=== PATIENT | male | born 1955 | race Caucasian/White ===

== ENCOUNTER 2020-08-28 08:09 | Outpatient (REF) | payer MEDICARE, SELFPAY ==
[2020-08-28 10:49] LABS: Ferritin 104 ng/mL (20-250)
== END 2020-08-28 08:10 | disposition home or self-care (01) ==
LOC: HO.BBR 08:09
PROVIDERS: PCP Internal Medicine; Visit Provider Internal Medicine Gastroenterology
DX: E83.110 Hereditary hemochromatosis (principal)
CPT/HCPCS: 36415; 82728

== ENCOUNTER 2020-08-28 09:18 | Outpatient (REF) | payer SELFPAY | END 2020-08-28 09:19 | disposition home or self-care (01) | LOC: HO.LNC 09:18 | PROVIDERS: Visit Provider Pathology Anatomic Pathology & Clinical Pathology | DX: Z13.89 Encounter for screening for other disorder (principal) | CPT/HCPCS: 36415; 82465 ==

== ENCOUNTER 2020-11-15 08:00 | Outpatient (REF) | payer MEDICARE, SELFPAY | END 2020-11-15 08:01 | disposition home or self-care (01) | LOC: HO.BBR 08:00 | PROVIDERS: PCP Internal Medicine; Visit Provider Internal Medicine Gastroenterology | DX: Z13.89 Encounter for screening for other disorder (principal) ==

== ENCOUNTER 2020-11-29 11:51 | Outpatient (REF) | payer MEDICARE, SELFPAY ==
[2020-11-29 14:12] LABS: Ferritin 88 ng/mL (20-250)
== END 2020-11-29 11:52 | disposition home or self-care (01) ==
LOC: HO.BBR 11:51
PROVIDERS: Visit Provider Internal Medicine Gastroenterology
DX: E83.110 Hereditary hemochromatosis (principal)
CPT/HCPCS: 36415; 82728

== ENCOUNTER 2021-10-22 11:03 | Outpatient (REF) | payer MEDICARE, BC, SELFPAY ==
[2021-10-22 13:00] LABS: Ferritin 133 ng/mL (20-250)
== END 2021-10-22 11:04 | disposition home or self-care (01) ==
LOC: HO.BBR 11:03
PROVIDERS: Visit Provider Internal Medicine Gastroenterology
DX: E83.110 Hereditary hemochromatosis (principal)
CPT/HCPCS: 36415; 82728

== ENCOUNTER 2022-01-28 11:09 | Outpatient (REF) | payer MEDICARE, BC, SELFPAY ==
[2022-01-28 13:23] LABS: Ferritin 126 ng/mL (20-250)
== END 2022-01-28 11:10 | disposition home or self-care (01) ==
LOC: HO.BBR 11:09
PROVIDERS: Visit Provider Internal Medicine Gastroenterology
DX: E83.110 Hereditary hemochromatosis (principal)
CPT/HCPCS: 36415; 82728

== ENCOUNTER 2022-05-08 11:00 | Outpatient (REF) | payer MEDICARE, BC, SELFPAY ==
[2022-05-08 13:03] LABS: Ferritin 91 ng/mL (20-250)
== END 2022-05-08 11:01 | disposition home or self-care (01) ==
LOC: HO.BBR 11:00
PROVIDERS: Visit Provider Internal Medicine Gastroenterology
DX: E83.110 Hereditary hemochromatosis (principal)
CPT/HCPCS: 36415; 82728

== ENCOUNTER 2022-08-12 11:11 | Outpatient (REF) | payer MEDICARE, BC, SELFPAY ==
[2022-08-12 14:27] LABS: Ferritin 65 ng/mL (20-250)
== END 2022-08-12 11:12 | disposition home or self-care (01) ==
LOC: HO.BBR 11:11
PROVIDERS: Visit Provider Internal Medicine Gastroenterology
DX: E83.110 Hereditary hemochromatosis (principal)
CPT/HCPCS: 36415; 82728

== ENCOUNTER 2022-11-04 09:10 | Outpatient (REF) | payer MEDICARE, BC, SELFPAY ==
[2022-11-04 11:12] LABS: Ferritin 63 ng/mL (20-250)
== END 2022-11-04 09:11 | disposition home or self-care (01) ==
LOC: HO.BBR 09:10
PROVIDERS: Visit Provider Internal Medicine Gastroenterology
DX: E83.110 Hereditary hemochromatosis (principal)
CPT/HCPCS: 36415; 82728

== ENCOUNTER 2023-05-25 10:19 | Outpatient (REF) | payer MEDICARE, SELFPAY | END 2023-05-25 10:20 | disposition home or self-care (01) | LOC: HO.BBR 10:19 | PROVIDERS: PCP Internal Medicine; Visit Provider Internal Medicine Gastroenterology | DX: Z13.89 Encounter for screening for other disorder (principal) ==

== ENCOUNTER 2023-08-19 10:04 | Outpatient (REF) | payer MEDICARE, SELFPAY | END 2023-08-19 10:05 | disposition home or self-care (01) | LOC: HO.BBR 10:04 | PROVIDERS: PCP Internal Medicine; Visit Provider Internal Medicine Gastroenterology | DX: Z13.89 Encounter for screening for other disorder (principal) ==

== ENCOUNTER 2023-11-23 08:46 | Outpatient (REF) | payer MEDICARE, SELFPAY ==
[2023-11-23 11:11] LABS: Ferritin 84 ng/mL (20-250)
== END 2023-11-23 08:47 | disposition home or self-care (01) ==
LOC: HO.BBR 08:46
PROVIDERS: PCP Internal Medicine; Visit Provider Internal Medicine Gastroenterology
DX: E83.110 Hereditary hemochromatosis (principal)
CPT/HCPCS: 36415; 82728

== ENCOUNTER 2024-03-29 09:10 | Outpatient (REF) | payer MEDICARE, SELFPAY | END 2024-03-29 09:11 | disposition home or self-care (01) | LOC: HO.BBR 09:10 | PROVIDERS: PCP Internal Medicine; Visit Provider Internal Medicine Gastroenterology | DX: Z13.89 Encounter for screening for other disorder (principal) ==

== ENCOUNTER 2024-07-06 08:59 | Outpatient (REF) | payer MEDICARE, SELFPAY ==
[2024-07-06 10:34] LABS: Ferritin 178 ng/mL (20-250)
== END 2024-07-06 09:00 | disposition home or self-care (01) ==
LOC: HO.BBR 08:59
PROVIDERS: PCP Internal Medicine; Visit Provider Internal Medicine Gastroenterology
DX: E83.110 Hereditary hemochromatosis (principal)
CPT/HCPCS: 36415; 82728

== ENCOUNTER 2024-12-22 10:07 | Outpatient (REF) | payer MEDICARE, SELFPAY ==
[2024-12-22 12:48] LABS: Ferritin 91 ng/mL (20-250)
== END 2024-12-22 10:08 | disposition home or self-care (01) ==
LOC: HO.BBR 10:07
PROVIDERS: PCP Internal Medicine; Visit Provider Internal Medicine Gastroenterology
DX: E83.110 Hereditary hemochromatosis (principal)
CPT/HCPCS: 36415; 82728

== ENCOUNTER 2025-03-29 10:59 | Outpatient (REF) | payer MEDICARE, SELFPAY ==
--- OUTSIDE RECORDS SUMMARY | 2025-03-29 11:55 | XMS_ITS | Encounter Summary ---
Author Organization [facility] Address [address] [place] [address] [place] [address] Phone Care Team Providers Care Erp Business Analyst Name Role Phone Jose Angel Cobb MD Unavailable Travis Fowler DO Unavailable [phone] Ana Torres MD Unavailable Beni Mcneil MD Unavailable Freda Angeal MD Unavailable Martha Reyes MD Unavailable Jose Angel Cobb MD Primary Care Provider Jose Angel Cobb MD Unavailable [phone] Encounter Details Date Type Department Care Team (Latest Contact Info) Description 11/28/2020 Transcribe Orders Virtual Department 30 [place] [address] Jesus Manuel Newman MD [address] [place] [address] Abnormal LFTs (Primary Dx) Social History Tobacco Use Types Packs/Day Years Used Date Smoking Tobacco: Never Smokeless Tobacco: Never Sex and Gender Information Value Date Recorded Sex Assigned at Male 04/15/2022 1:02 PM EDT Legal Sex Male 9:55 PM EDT Gender Identity Male 04/15/2022 1:02 PM EDT Sexual Orientation Not on file 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, 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 on file Not on sarah e documented as of this encounter Plan of Treatment Upcoming Encounters Date Type Department Care Team (Late st Contact Info) Description 06/22/2025 3:00 PM EST Office Visit [facility] Neuromuscular [address] [place] [address] Felicity Palomo PA-C 60 [place] [address] [email or web address] documented as of this encounter Results * US ABDOMEN LIMITED RIGHT UPPER QUADRANT (12/18/2020 8:01 AM EDT) Anatomical Region Laterality Modality Abdomen Ultrasound 12/18/2020 8:08 AM EDT Impressions 12/18/2020 8:11 AM EDT Sonographic findings suggestive of fatty infiltration of the liver parenchyma. Narrative 12/18/2020 8:11 AM EDT EXAM: US ABDOMEN LIMITED RIGHT UPPER QUADRANT HISTORY: Abnormal LFTs N/A no indication applies (use free text below) COMPARISON: Ultrasound on August 19, 2019 TECHNIQUE: Limited ultrasound examination of right upper quadrant of abdomen was performed and multiple static images obtained. FINDINGS: PANCREAS: LIVER: Diffuse increased liver echogenicity. Heterogeneous parenchyma, but no discrete focal lesion demonstrated in the provided images. Main portal vein is patent and with normal hepatopetal flow GALLBLADDER/BILIARY: The gallbladder has a normal appearance, without evidence for gallstones, gallbladder wall thickening or pericholecystic fluid. Common bile duct demonstrates a normal diameter and measures 0.3 cm. RIGHT KIDNEY: No hydronephrosis. Upper AORTA and IVC: Visualized upper portions of aorta and inferior vena cava are unremarkable. Other: No free fluid demonstrated. Procedure Note Kathy Sagastume MD - 12/18/2020 EXAM: US ABDOMEN LIMITED RIGHT UPPER QUADRANT HISTORY: Abnormal LFTs N/A no indication applies (use free text below) COMPARISON: Ultrasound on August 19, 2019 TECHNIQUE: Limited ultrasound examination of right upper quadrant ofabdomen was performed and multiple static images obtained. FINDINGS: PANCREAS: LIVER: Diffuse increased liver echogenicity. Heterogeneous parenchyma, butno discrete focal lesion demonstrated in the provided images. Main portalvein is patent and with normal hepatopetal flow GALLBLADDER/BILIARY: The gallbladder has a normal appearance, withoutevidence for gallstones, gallbladder wall thickening or pericholecysticfluid. Common bile duct demonstrates a normal diameter and measures 0.3cm. RIGHT KIDNEY: No hydronephrosis. Upper AORTA and IVC: Visualized upper portions of aorta and inferior venacava are unremarkable. Other: No free fluid demonstrated. IMPRESSION: Sonographic findings suggestive of fatty infiltration of the liverparenchyma. us Jesus Manuel Newman MD IMG US ABDOMEN Final Result documented in this encounter Visit Diagnoses Diagnosis Abnormal LFTs- Primary Abnormal LFTs documented in this encounter Additional Health Concerns Assessment Noted Time PHQ-2 Depression Total Score: 0 07/06/20 19 4:34 PM EST documented as of this encounter Care Teams Erp Business Analyst Relationship Specialty Start Date End Date Jose Angel Cobb MD [address] [place] [address] PCP - General Internal Medicine 06/19/17 Jose Angel Cobb MD [address] [place] [address] Historical LMR Provider 05/20/17 Travis Fowler DO [address] [place] [address] Orthopedics & Sports Medicine, [place] [address] Historical LMR Provider 05/20/17 08/10/21 Ana Torres MD [address] [place] [address] Historical LMR Provider 05/20/17 Beni Mcneil MD [address] [facility] [address] [place] [address] Historical LMR Provider 05/20/17 2 Freda Angela MD [address] [place] [address] Orthopedics & Sports Medicine, [place] [address] Historical LMR Provider 05/20/17 Martha Reyes MD [address] [place] [address] Historical LMR Provider 05/20/17 Jose Angel Cobb MD [address] [place] [address], [address] [place] [address] [email or web address] Insurance Assigned Provider 11/07/23 documented as of this encounter Additional Source Comments The information contained in this document represents components of the legal health record. It is not the complete legal health record.[facility]
--- OUTSIDE RECORDS SUMMARY | 2025-03-29 11:55 | XMS_ITS | Encounter Summary ---
Author Organization [facility] Address [address] [place] [address] Phone Care Team Providers Care Plastic Bubble Packer Name Role Phone Jose Angel Cobb MD Unavailable Jose Angel Cobb MD Primary Care Provider Jose Angel Cobb MD Unavailable [phone] Encounter Details Date Type Department Care Team (Latest Contact Info) Description 11/26/2022 Transcribe Orders Virtual Department 30 [place] [address] Jesus Manuel Newman MD [address] [place] [address] [email or web address] Hepatic fibrosis (Primary Dx); Hereditary hemochromatosis Social History Tobacco Use Types Packs/Day Years Used Date Smoking Tobacco: Never Smokeless Tobacco: Never Alcohol Use Standard Drinks/Week Comments Yes 0 (1 standard drink = 0.6 oz pur e alcohol) once a week Child or Family Care Answer Date Record ed Do you have problems with on e of the following making it difficult for you to work, study, or receive health care? No 12/25/2021 Education Answer Date Recorded Are you interested in help w ith more adult education (for example, completing high school, GED, job training, learning the Maur[place] language, technical skills, or developing parenting skills)? No 12/25/2021 Food Answer Date Recorded Within the past 6 months we worried whether our food would run out before we got money to buy more. Never True 12/25/2021 Within the past 6 months the food we bought just didn't last and we didn't have enough money to get more. Never True Residential Stability Answer Date Recor ded What is your housing situation today? I have smiley maddox 12/25/2021 How many times have you move d in the past 12 months? Zero (I did not move) 12/25/2021 Paying for Meds Answer Date Recorded Do you have trouble paying for medicines? No 12/25/2021 Paying Utility Bills Answer Date Record ed Do you have trouble paying your heating or elect ricity bill? No 12/25/2021 Transportation Answer Date Recorded Has the lack of transportati on kept you from medical appointments or from getting medications? No 12/25/2021 Unemployment Answer Date Recorded Are you currently unemployed or working on a part-time or temporary basis, and looking for work? 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, 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 on file Not on sarah e documented as of this encounter Plan of Treatment Upcoming Encounters Date Type Department Care Team (Late st Contact Info) Description 06/22/2025 3:00 PM EST Office Visit [facility] Neuromuscular [address] [place] [address] Felicity Palomo PA-C [address] [place] [address] [email or web address] documented as of this encounter Results * US LIVER WITH ELASTOGRAPHY (12/19/2022 7:55 AM EDT) Anatomical Region Laterality Modality Abdomen Ultrasound 12/19/2022 8:34 AM EDT Impressions 12/19/2022 2:46 PM EDT 1. Mean Liver Stiffness Value 6.6 kPa 2. Increased echogenicity of the hepatic parenchyma which may be seen in the setting of hepatic steatosis. Narrative 12/19/2022 2:46 PM EDT US LIVER WITH ELASTOGRAPHY TECHNIQUE: US Limited Abdomen with Liver Elastography. COMPARISON: Sonography 05/16/2021 FINDINGS: MIDLINE VASCULATURE: The visualized IVC is patent. Portal vein is patent. The aorta is patent where visualized. LIVER: There is increased echogenicity of the hepatic parenchyma which may be seen in the setting of hepatic steatosis. No focal hepatic lesions demonstrated sonographically. BILIARY: Gallbladder: The gallbladder is nondistended with normal gallbladder wall thickness. No cholelithiasis. Common bile duct measures 4 mm. PANCREAS: Incompletely visualized due to overlying bowel gas. Visualized portions are within normal limits PERITONEUM: No free fluid. RIGHT KIDNEY: Normal in size. No hydronephrosis or calculus. Elastography: Sonographic assessment (kPa): 6.6. (IQR/Med: 9.5 %) Risk of fibrosis: This is less than 9 kPa, which in the absence of other known clinical signs, rules out compensated advanced chronic liver disease. SOCIETY OF RADIOLOGISTS IN ULTRASOUND CONSENSUS: In the setting of elevated liver function tests, nonfasting, vascular congestion, etc., the stage of liver fibrosis may be overestimated. In some patients with NAFLD, the cut-off values for compensated advanced chronic liver disease may be lower. In causes other than viral hepatitis and NAFLD, the cut-off values are not well established. Melody RG, Jasiel SR, Ramin D, Roshan-Astrid G, Elina G. Update to the Society of Radiologists in Ultrasound Liver Elastography Consensus Statement. Radiology. 2020 Mar;296(2):263-274. doi: 10.1148/radiol.[id number]. Epub 2019Jan 09. PMID: [id number]. Procedure Note Elaine Skinner MD - 12/19/2022 US LIVER WITH ELASTOGRAPHY TECHNIQUE: US Limited Abdomen with Liver Elastography. COMPARISON: Sonography 05/16/2021 FINDINGS: MIDLINE VASCULATURE: The visualized IVC is patent. Portal vein is patent.The aorta is patent where visualized. LIVER: There is increased echogenicity of the hepatic parenchyma which maybe seen in the setting of hepatic steatosis. No focal hepatic lesionsdemonstrated sonographically. BILIARY: Gallbladder: The gallbladder is nondistended with normalgallbladder wall thickness. No cholelithiasis. Common bile duct measures 4 mm. PANCREAS: Incompletely visualized due to overlying bowel gas. Visualizedportions are within normal limits PERITONEUM: No free fluid. RIGHT KIDNEY: Normal in size. No hydronephrosis or calculus. Elastography: Sonographic assessment (kPa): 6.6. (IQR/Med: 9.5 %) Risk of fibrosis: This is less than 9 kPa, which in theabsence of other known clinical signs, rules out compensated advancedchronic liver disease. SOCIETY OF RADIOLOGISTS IN ULTRASOUND CONSENSUS: In the setting of elevated liver function tests, nonfasting, vascularcongestion, etc., the stage of liver fibrosis may be overestimated. Insome patients with NAFLD, the cut-off values for compensated advancedchronic liver disease may be lower. In causes other than viral hepatitisand NAFLD, the cut-off values are not well established. Melody RG, Jasiel SR, Ramin D, Roshan-Astrid G, Elina G. Update to theSociety of Radiologists in Ultrasound Liver Elastography ConsensusStatement. Radiology. 2020 Mar;296(2):263-274. doi:10.1148/radiol.[id number]. Epub 2019Jan 09. PMID: [id number]. IMPRESSION: 1. Mean Liver Stiffness Value 6.6 kPa 2. Increased echogenicity of the hepatic parenchyma which may be seen inthe setting of hepatic steatosis. us Jesus Manuel Newman MD IMG US ABDOMEN Final Result documented in this encounter Visit Diagnoses Diagnosis Hepatic fibrosis- Primary Cirrhosis of liver without mention of alcohol Hereditary hemochromatosis Hepatic fibrosis Cirrhosis of liver without mention of alcohol Hereditary hemochromatosis documented in this encounter Additional Health Concerns Assessment Noted Time PHQ-2 Depression Total Score: 0 12/26/19 22 2:52 PM EDT documented as of this encounter Care Teams Plastic Bubble Packer Relationship Specialty Start Date End Date Jose Angel Cobb MD [address] [place] [address], [address] [place] [address] PCP - General Internal Medicine 06/19/17 Jose Angel Cobb MD [address] [place] [address], [address] [place] [address] [email or web address] Historical LMR Provider 05/20/17 Jose Angel Cobb MD [address] [place] [address], [address] [place] [address] [email or web address] Insurance Assigned Provider 11/07/23 documented as of this encounter Additional Source Comments The information contained in this document represents components of the legal health record. It is not the complete legal health record.[facility]
--- OUTSIDE RECORDS SUMMARY | 2025-03-29 11:55 | XMS_ITS | Encounter Summary ---
Author Organization [facility] Address [address] [place] [address] [place] [address] Phone Care Team Providers Care Oriental Medicine Practitioner Name Role Phone Jose Angel Cobb MD Unavailable [phone] Travis Fowler DO Unavailable Ana Torres MD Unavailable Beni Mcneil MD Unavailable Freda Angela MD Unavailable Martha Reyes MD Unavailable Jose Angel Cobb MD Primary Care Provider Jose Angel Cobb MD Unavailable Encounter Details Date Type Department Care Team (Latest Contact Info) Description 08/19/2018 Ancillary Orders Virtual Department 30 [place] [address] Jesus Manuel Newman MD [address] [place] [address] Hereditary hemochromatosis Social History Tobacco Use Types Packs/Day Years Used Date Smoking Tobacco: Never Smokeless Tobacco: Never Sex and Gender Information Value Date Recorded Sex Assigned at Male 04/15/2022 1:02 PM EDT Legal Sex Male 9:55 PM EDT Gender Identity Male 04/15/2022 1:02 PM EDT Sexual Orientation Not on file documented as of this encounter Plan of Treatment Upcoming Encounters Date Type Department Care Team (Late st Contact Info) Description 06/22/2025 3:00 PM EST Office Visit [facility] Neuromuscular [address] [place] [address] Felicity Palomo PA-C 60 [place] [address] [email or web address] documented as of this encounter Results * US ABDOMEN LIMITED LIVER (09/14/2018 8:16 AM EST) Anatomical Region Laterality Modality Abdomen Ultrasound 09/14/2018 10:4 9 AM EST Impressions 09/14/2018 10:54 AM EST Echogenic, heterogeneous and coarse liver. The appearance is very similar to 06/30/2016. No evidence of hepatic masses. POS - [id number] Narrative 09/14/2018 10:54 AM EST HISTORY: Abnormal liver function tests, hereditary hemochromatosis. EXAM: Limited abdominal ultrasound. COMPARISON: Abdominal ultrasound 06/30/2016. FINDINGS: A directed ultrasound of the liver performed. The liver is mildly hyperechoic, heterogeneous and echotexture is coarse. The appearance is very similar to 06/30/2016. No evidence of hepatic masses. Liver appears grossly normal in size. No other definite abnormalities. Procedure Note Catalino Hdez MD - 09/14/2018 HISTORY: Abnormal liver function tests, hereditary hemochromatosis. EXAM: Limited abdominal ultrasound. COMPARISON: Abdominal ultrasound 06/30/2016. FINDINGS: A directed ultrasound of the liver performed. The liver is mildly hyperechoic, heterogeneous and echotexture is coarse.The appearance is very similar to 06/30/2016. No evidence of hepaticmasses. Liver appears grossly normal in size. No other definiteabnormalities. IMPRESSION: Echogenic, heterogeneous and coarse liver. The appearance is very similarto 06/30/2016. No evidence of hepatic masses. POS - [id number] us Jesus Manuel Newman MD IMG US ABDOMEN Final Result documented in this encounter Visit Diagnoses Diagnosis Hereditary hemochromatosis Hereditary hemochromatosis documented in this encounter Care Teams Oriental Medicine Practitioner Relationship Specialty Start Date End Date Jose Angel Cobb MD [address] [place] [address] PCP - General Internal Medicine 06/19/17 Jose Angel Cobb MD [address] [place] [address] Historical LMR Provider 05/20/17 Travis Fowler DO [address] [place] [address] Orthopedics & Sports [facility], [place] [address] Historical LMR Provider 05/20/17 08/10/21 Ana Torres MD [address] [address] Historical LMR Provider 05/20/17 Beni Mcneil MD [address] [place] [address] [place] [address] Historical LMR Provider 05/20/17 2 Freda Angela MD [address] [place] [address] Orthopedics & Sports [facility], [place], [place] [id number] Historical LMR Provider 05/20/17 Martha Reyes MD [address] [place] [address] Historical LMR Provider 05/20/17 Jose Angel Cobb MD [address] [place] [address], [address] [place] [address] [email or web address] Insurance Assigned Provider 11/07/23 documented as of this encounter Additional Source Comments The information contained in this document represents components of the legal health record. It is not the complete legal health record.[facility]
--- OUTSIDE RECORDS SUMMARY | 2025-03-29 11:55 | XMS_ITS | Encounter Summary ---
Author Organization [facility] Address [address] [facility] [address] [place] [address] Phone Care Team Providers Care Paste Mixing Supervisor Name Role Phone Jose Angel Cobb MD Unavailable Jose Angel Cobb MD Primary Care Provider Jose Angel Cobb MD Unavailable Reason for Visit * Reason Onset Date Comments Referral 06/14/2024 Encounter Details Date Type Department Care Team (Late st Contact Info) Description 06/14/2024 Telephone [facility] [address] [place] [address] [place] [address] Jose Angel Cobb MD [address] [place] [address], [address] [place] [address] [email or web address] Referral Social History Tobacco Use Types Packs/Day Years [...] Answer Date Recorded Are you interested in more education? Not on sarah e 12/29/2023 Are you concerned about learning? Not on file 12/29/2023 No 12/29/2023 No 12/29/2023 Food Answer Date Recorded Within the past [...] your housing situation today? I have smiley sing 12/25/2021 How many times have you move [...] basis, and looking for work? No 12/25/2021 Digital Access Answer Date Recorded No 12/25/2022 No 12/25/2022 Reliable internet access at home? Not on file 12/25/2022 Device with a working camera? 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 Claims doctor had written one last appointment (about 6 months ago), but patient can not find it. Last dermatology referral is from 2022, and is no good. Patient has no preference of correctional case manager to go too, just wants referral. Please [phone] documented in this encounter Plan of Treatment Upcoming Encounters Date Type Department Care Team (Late st Contact Info) Description 06/22/2025 3:00 PM EST Office Visit [facility] Neuromuscular 60 [place] [address] Felicity Palomo PA-C 60 [place] [address] [email or web address] documented as of this encounter Visit Diagnoses Not on filedocumented in this encounter Additional Health Concerns Assessment Noted Time PHQ-9 Depression Total Score: 4 07/13/20 23 8:19 AM EST PHQ-2 Depression Total Score: 0 07/13/20 23 8:19 AM EST documented as of this encounter Care Teams Paste Mixing Supervisor Relationship Specialty Start Date End Date Jose Angel Cobb MD [address] [place] [address] PCP - General Internal Medicine 06/19/17 Jose Angel Cobb MD [address] [place] [address] Historical LMR Provider 05/20/17 Jose Angel Cobb MD [address] [place] [address] Insurance Assigned Provider 11/07/23 documented as of this encounter Additional Source Comments The information contained in this document represents components of the legal health record. It is not the complete legal health record.[facility]
--- OUTSIDE RECORDS SUMMARY | 2025-03-29 11:55 | XMS_ITS | Encounter Summary ---
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, 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 on file Not on sarah e documented as of this encounter Plan of Treatment Upcoming Encounters Date Type Department Care Team (Late st Contact Info) Description 06/22/2025 3:00 PM EST Office Visit [facility] Neuromuscular 60 [place] [address] Felicity Palomo PABella [address] [place] [address] [email or web address] documented as of this encounter Visit Diagnoses Not on filedocumented in this encounter Additional Health Concerns Assessment Noted Time PHQ-9 Depression Total Score: 4 07/13/20 23 8:19 AM EST PHQ-2 Depression Total Score: 0 07/13/20 23 8:19 AM EST documented as of this encounter Care Teams Instrument Mechanics Supervisor Relationship Specialty Start Date End Date Jose Angel Cobb MD [address] [place] [address], [address] [place] [address] [email or web address] PCP - General Internal Medicine 06/19/17 Jose Angel Cobb MD [address] [place] [address], [address] [place] [address] Historical LMR Provider 05/20/17 Jose Angel Cobb MD [address] [place] [address], [address] [place] [address] [email or web address] Insurance Assigned Provider 11/07/23 documented as of this encounter Additional Source Comments The information contained in this document represents components of the legal health record. It is not the complete legal health record.[facility]
--- OUTSIDE RECORDS SUMMARY | 2025-03-29 11:55 | XMS_ITS | Encounter Summary ---
Author Organization [facility] Address [address] [place] [address] [place] [address] Phone Care Team Providers Care Mig Tig Welder Name Role Phone Jose Angel Cobb MD Unavailable [phone] Travis Fowler DO Unavailable Ana Torres MD Unavailable Beni Mcneil MD Unavailable [phone] Freda Angela MD Unavailable Martha Reyes MD Unavailable Jose Angel Cobb MD Primary Care Provider Jose Angel Cobb MD Unavailable [phone] Encounter Details Date Type Department Care Team (Latest Contact Info) Description 08/17/2018 Transcribe Orders [facility] Laboratory [address] 2[address] [place] [address] Jesus Manuel Newman MD 10 [facility] 2 [place] [address] Hemochromatosis, unspecified hemochromatosis type (Primary Dx) Social History Tobacco Use Types [...] Description 06/22/2025 3:00 PM EST Office Visit [facility] Neuromuscular [address] [place] [address] Felicity Palomo PA-C [address] [place] [address] [email or web address] documented as of this encounter Results * Ferritin (08/17/2018 11:23 AM EST) FERRITIN 58 30 - 400 ug/L [facility] Blood 08/17/2018 11:2 3 AM EST 08/17/2018 11:26 AM EST us Jesus Manuel Newman MD LAB BLOOD ORDERABLES Final Res ult Performing Organization Address City/State/[facility] Co de Phone Number [address] [address] * (ABNORMAL) Comprehensive metabolic panel (08/17/2018 11:23 AM EST) SODIUM 140 133 - 146 mmol/L [facility] POTASSIUM 4.8 3.3 - 5.1 mmol/L [facility] CHLORIDE 99 96 - 108 mmol/L [facility] CO2 29 21 - 35 mmol/L [facility] BUN 21(H) 6 - 19 mg/dL [facility] CREATININE 1.10 0.5 - 1.5 mg/dL [facility] GLUCOSE 97 70 - 99 mg/dL [facility] ALBUMIN 4.8 3.9 - 4.8 g/dL [facility] TOTAL PROTEIN 7.5 6.5 - 8.0 g/dL [facility] CALCIUM 9.9 8.4 - 10.3 mg/dL [facility] ALKALINE PHOSPHATASE 86 39 - 117 U/L [facility] TOTAL BILIRUBIN 0.7 0.0 - 1.2 mg/dL [facility] AST 34 0 - 37 U/L [facility] ALT 36 0 - 40 U/L [facility] GLOBULIN 2.7 1 - 4.8 g/dL [facility] EGFR 71 >59 mL/min/1.7 3m2 [facility] Comment:If patient is black, multiply result by 1.159. Estimated glomerular filtration rate calculated using the CKD-EPI equation. ANION GAP 17 10 - 20 mmol/L [facility] Blood 08/17/2018 11:2 3 AM EST 08/17/2018 11:26 AM EST us Jesus Manuel Newman MD LAB BLOOD ORDERABLES Final Res ult [address] [address] * AFP (non-maternal specimens) (08/17/2018 11:23 AM EST) AFP (NON-MATERNAL) 1.6 0.8 - 7.5 ng/mL [facility] Blood 08/17/2018 11:2 3 AM EST 08/17/2018 11:26 AM EST us Jesus Manuel Newman MD LAB BLOOD ORDERABLES Final Res ult Performing Organization Address City/[facility]/ZIP Co de Phone Number [address] [address] documented in this encounter Visit Diagnoses Diagnosis Hemochromatosis, unspecified hemochromatosis type- Primary documented in this encounter Care Teams Mig Tig Welder Relationship Specialty Start Date End Date Jose Angel Cobb MD [address] [place] [address], [address] [place] [address] PCP - General Internal Medicine 06/19/17 Jose Angel Cobb MD [address] [place] [address], [address] [place] [address] Historical LMR Provider 05/20/17 Travis Fowler DO 4 [facility] [place] [address] Historical LMR Provider 05/20/17 08/10/21 Ana Torres MD [address] [address] Historical LMR Provider 05/20/17 Beni Mcneil MD [address] [address] Historical LMR Provider 05/20/17 2 Freda Angela MD [address] [place] [address] [facility] [place] [address] Historical LMR Provider 05/20/17 Martha Reyes MD [address] [place] [address] Historical LMR Provider 05/20/17 Jose Angel Cobb MD [address] [place] [address] Insurance Assigned Provider 11/07/23 documented as of this encounter Additional Source Comments The information contained in this document represents components of the legal health record. It is not the complete legal health record.[facility]
--- OUTSIDE RECORDS SUMMARY | 2025-03-29 11:55 | XMS_ITS | Clinical Summary ---
Author Organization [facility] Address [address] [facility] [address] [place] [address] Phone Care Team Providers Care Ice Rink Attendant Name Role Phone Jose Angel Cobb MD Unavailable [phone] Jose Angel Cobb MD Primary Care Provider Jose Angel Cobb MD Unavailable [phone] Allergies No known active allergies Medications vardenafiL (STAXYN) 10 mg ODTIndications:E rectile dysfunction, unspecified erectile dysfunction type Take 1 tablet (10 mg total) by mouth every morning. 4 tablet 5 02/06/2025 Active tadalafiL (CIALIS) 10 MG tabletIndication s:Erectile dysfunction, unspecified erectile dysfunction type TAKE 1 TABLET BY MOUTH EVERY DAY NEEDED. NC 30 tablet 02/06/2025 Active Active Problems Problem Noted Date Diagnosed Date Sciatica of right side 01/13/2024 Assessment & Plan (01/13/2024 8:57 AM EDT): Will get x-ray for evaluation of lumbar spine. Referred to physical therapy as well. Advised to keep up activity as he has been. Elevated BP without diagnosis of hypertension Assessment & Plan (06/01/2024 10:53 PM EDT): Advised to resume checking his blood pressure at home. Will need to consider blood pressure medication Assessment & Plan (02/29/2024 7:23 PM EDT): His blood pressure is still elevated. We discussed lifestyle measures. If still elevated at next visit, will start treatment. Assessment & Plan (01/13/2024 8:58 AM EDT): He has had some high blood pressure readings. Discussed checking it at home and coming back in for reevaluation of blood pressure. Acute right-sided low back pain without sciatica 07/13/2023 Assessment & Plan (02/29/2024 7:32 PM EDT): Improved. Assessment & Plan (07/13/2023 8:55 AM EST): This was likely related to muscle strain from coughing. It has resolved now. Discussed signs and symptoms that would warrant reevaluation. Skin lesion of face 07/13/2023 Assessment & Plan (07/13/2023 8:54 AM EST): We discussed that this could be a basal cell carcinoma. Referral to dermatology placed. Tinnitus of both ears 01/06/2023 Assessment & Plan (01/06/2023 9:11 AM EDT): We discussed that this could be related to hearing loss. Hearing screen done which showed high frequency hearing loss. Discussed evaluation with audiology to see if hearing aids would be recommended. This may reduce or eliminate the tinnitus. High frequency hearing loss of both ears 023 Assessment & Plan (01/06/2023 9:12 AM EDT): Noted today. Discussed having evaluation with audiology after he travels this summer. Erectile dysfunction 12/29/2021 Assessment & Plan (02/29/2024 7:32 PM EDT): He received notification from the pharmacy that he needs to try an alternative to vardenafil as it was not covered by insurance. Tadalafil sent. Assessment & Plan (12/29/2021 12:28 PM EDT): Continue vardenafil. He does have some issues with nocturia related to BPH. He will reconsider resuming tamsulosin. Vitamin D deficiency 12/29/2021 Assessment & Plan (12/29/2021 12:27 PM EDT): Will get updated vitamin D level. Osteoarthritis of right hip 07/03/2019 Right inguinal pain 07/03/2019 Right hip pain 07/03/2019 Hereditary hemochromatosis Assessment & Plan (06/01/2024 10:54 PM EDT): Stable. Assessment & Plan (02/29/2024 7:25 PM EDT): He follows with GI for monitoring of this. Assessment & Plan (01/13/2024 8:45 AM EDT): Stable. Assessment & Plan (01/06/2023 9:01 AM EDT): He gives blood regularly. He had a recent ultrasound with no concern for advanced liver disease. Steatosis noted. Assessment & Plan (12/29/2021 12:26 PM EDT): He gives blood regularly and his ferritin levels have been well controlled. Resolved Problems Problem Noted Date Diagnosed Date Resolved Date Subacute cough 07/13/2023 02/29/2024 Assessment & Plan (07/13/2023 8:53 AM EST): This is postviral after recent COVID infection. Will continue to monitor. Advised that this should improve with time. Encounters Date Type Department Care Team Description 02/23/2025 8:02 AM EDT - 02/23/2025 11:59 PM EDT Hospital Encounter [facility] [address] [place] [address] Jose Angel Cobb MD Discharge Disposition: Home or Self Care 02/16/2025 Telephone [facility] [address] [place] [address] Jose Angel Cobb MD B-12 question 02/03/2025 Refill [facility] [address] [place] [address] Jose Angel Cobb MD Medication Refill 01/31/2025 12:40 PM EDT Telemedicine [facility] [address] [place] [address] Jagdish Alvarado PA-C, VAL Hordeolum externum of left upper eyelid (Primary Dx) 01/31/2025 Telephone [facility] [address] [place] [address] Jose Angel Cobb MD Triage (Left Eye swelling ) 12/31/2024 8:40 AM EDT Telemedicine [facility] [employer] [address] [place] [address] Tick bite of back, initial encounter (Primary Dx) 12/31/2024 Nurse Triage [facility] [address] [place] [address] [employer] [address] [address] Yuliya Moe PA-C Tick Bite (After hours call ) from Last 3 Months Immunizations Immunization Administration Dates Next Due COVID-19 (Pre-05/25) Pfizer Vaccine, mRNA, PF ,10/04/2020 Influenza High-Dose Quadrivalent Preservative Fr ee IM 07/13/2023,08/13/2020 Influenza High-Dose Trivalent Preservative Free IM 05/31/2024 Influenza Quadrivalent Adjuvanted Preservative F ree IM 05/14/2021 Influenza Quadrivalent w/ Preservative IM 2018 Pneumococcal conjugate PCV20 01/06/2023 Td (adult),2 Lf Tetanus Toxoid, PF, Adsorbed Tdap 11/23/2018 Family History Medical History Relation Comments Bladder Cancer Father Heart attack Father Leukemia Father Lung cancer Father Alcohol abuse Maternal Grandfather Stroke Maternal Grandmother Hypertension Mother Stroke Paternal Grandmother Hemochromatosis Sister 1 one gene Relation Status Comments Brother Alive Daughter Alive Father (Age 76) Maternal Grandfather Maternal Grandmother Mother Paternal Grandmother Sister 1 Alive Sister 2 Alive Son Alive Social History Tobacco Use Types Packs/Day Years Used Date Smoking Tobacco: Never Smokeless Tobacco: Never Tobacco Cessation:Counseling Given: Not Answered Alcohol Use Standard Drinks/Week Comments Yes 1 (1 standard drink = 0.6 oz pur [...] 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, 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 on file Not on sarah e Last Filed Vital Signs Vital Sign Reading Time Taken Comments Blood Pressure 128/82 09/12/2024 1:47 PM EST Pulse 74 09/12/2024 1:47 PM EST Temperature 36.7 C (98 F) 09/12/2024 1:47 PM EST Respiratory Rate 20 04/15/2022 3:50 PM EDT Oxygen Saturation 98% 09/12/2024 1:47 PM EST Inhaled Oxygen Concentration - - Weight 80.3 kg (177 lb) 09/12/2024 1:47 PM EST Height 171 cm (5' 7.32 ) 05/31/2024 11:21 AM EDT Body Mass Index 27.46 05/31/2024 11:21 AM EDT Plan of Treatment Upcoming Encounters Date Type Department Care Team (Late st Contact Info) Description 06/22/2025 3:00 PM EST Office Visit [facility] Neuromuscular [address] [place] [address] Felicity Palomo PA-C [address] [place] [address] [email or web address] Health Maintenance Due Date Last Done Comments COLOGUARD 2000 FIT TEST 2000 FOBT 2000 SIGMOIDOSCOPY 2000 VIRTUAL COLONOSCOPY 2000 ZOSTER VACCINES (1 of 2) 2005 COVID-19 VACCINE ( season) 2024 12/16/2021, 05/14/2021, 10/25/2020, Additional history exists DEPRESSION SCREENING 07/13/2024 07/13/2023, 07/13/20 23 INFLUENZA VACCINE (#1) 2025 , 07/13/2023, 07/13/2023, Additional history exists SCREENING FOR DIABETES 03/09/2027 03/09/2024, 2021 COLONOSCOPY 09/02/2028 09/02/2018 COLORECTAL CANCER SCREENING 09/02/2028 Adult Td,Tdap Booster 11/23/2028 11/23/2018, 008 LIPID PANEL 07/22/2029 07/22/2024, 07/03, 07/13/2019 RSV VACCINE (1 - 1-dose 75+ series) 2030 HEPATITIS C SCREENING Completed 10/04/2019 PNEUMOCOCCAL VACCINES (50+ years) Completed 01/06/2023 SMOKING STATUS SCREENING (Once After 26 Yrs) Completed 09/12/2024 HEPATITIS A VACCINES Aged Out No long er eligible based on patient's age to complete this topic HIB VACCINES Aged Out No longer eligi ble based on patient's age to complete this topic MENINGOCOCCAL VACCINES (ACWY) Aged Out No longer eligible based on patient's age to complete this topic MENINGOCOCCAL VACCINES (B) Aged Out N o longer eligible based on patient's age to complete this topic Medical Devices Not on file Procedures Procedure Name Priority Date/Time Associated Diagnosis Comments VITAMIN B12 Routine 02/23/2025 8:03 AM EDT Hereditary hemochromatosis LIPID PANEL Routine 07/22/2024 8:12 AM EST Medicare annual wellness visit, subsequent LIVER FIBROSIS TEST Routine 10/04/2019 1 0:05 AM EST Hereditary hemochromatosis Fibrosis in abdominal region COLONOSCOPY FOR RESULT ENTRY ONLY Routine 09/02/2018 from Last 3 Months or Most Recently Relevant to Health Maintenance Results * Vitamin B12 (02/23/2025 8:03 AM EDT) VITAMIN B12 448 232 - 1,245 pg/mL [facility] Blood 02/23/2025 8:03 AM EDT 02/23/2025 8:08 AM EDT Jose Angel Cobb MD LAB BLOOD ORDERABLES Final Result [facility] [address] [place] [address] * Lipid panel (07/22/2024 8:12 AM EST) HDL 45 mg/dL [facility] Comment: Interpretation <40 mg/dL: Low HDL cholesterol (major risk factor for CHD) Greater than or equal to 60 mg/dL: High HDL cholesterol ( negative risk factor for CHD) HDL - cholesterol is affected by a number of factors, e.g. smoking, excerise, hormones, sex and age. CHOLESTEROL 166 0 - 240 mg/dL [facility] TRIGLYCERIDES 73 30 - 160 mg/dL [facility] LDL 106 50 - 129 mg/dL [facility] Comment: LDL levels in terms of risk for coronary heart disease: <100 mg/dL: Optimal 100-129 mg/dL: Near or above optimal 130-159 mg/dL: Borderline high 160-189 mg/dL: High >190 mg/dL: Very High CARDIAC RISK RATIO 3.7 3.4 - 5.0 [facility] Blood 07/22/2024 8:12 AM EST 07/22/2024 8:29 AM EST us Jose Angel Cobb MD LAB BLOOD ORDERABLES Final Result Performing Organization Address City/State/[facility] Co de Phone Number [address] [address] * (ABNORMAL) Liver fibrosis test (10/04/2019 10:05 AM EST) Fibrosis score 0.47 [facility] Interpretation (Fibrosis) SEE NOTE [facility] Comment: (NOTE) minimal fibrosis Fibro Test Score (f) Metavir Score f>=0 and f<=0.21 : F0 (no fibrosis) f>0.21 and f<=0.27 : F0-F1 (no fibrosis) f>0.27 and f<=0.31 : F1 (minimal fibrosis) f>0.31 and f<=0.48 : F1-F2 (minimal fibrosis) f>0.48 and f<=0.58 : F2 (moderate fibrosis) f>0.58 and f<=0.72 : F3 (advanced fibrosis) f>0.72 and f<=0.74 : F3-F4 (advanced fibrosis) f>0.74 and f<=1.00 : F4 (severe fibrosis) HCV Fibrosis Grade SEE NOTE [facility] Comment: (NOTE) Result: F1-F2 NECROINFLAMM SCORE 0.15 [facility] NECROINFLAMM GRADE A0 [facility] NECROINFLAMM INTERP SEE NOTE [facility] Comment: (NOTE) no activity ActiTest Score (a) Metavir Score a>=0 and a<=0.17 : A0 (no activity) a>0.17 and a<=0.29 : A0-A1 (no activity) a>0.29 and a<=0.36 : A1 (minimal activity) a>0.36 and a<=0.52 : A1-A2 (minimal activity) a>0.52 and a<=0.60 : A2 (significant activity) a>0.60 and a<=0.62 : A2-A3 (significant activity) a>0.62 and a<=1.00 : A3 (severe activity) A2 Macroglobulin 314(H) 106 - 279 mg/dL [facility] Haptoglobin 110 43 - 212 mg/dL [facility] Apolipoprotein A1 131 94 - 176 mg/dL [facility] TOTAL BILIRUBIN 0.5 0.2 - 1.2 mg/dL [facility] GGT 12 3 - 70 U/L [facility] ALT 26 9 - 46 U/L [facility] Specimen/Product ID [id number] [facility] Comments (Chemistry) SEE NOTE [facility] Comment: (NOTE) The reliability of results is dependent on compliance with the preanalytical and analytical conditions recommended by [employer]. The tests have to be deferred for: acute hemolysis, acute hepatitis, acute inflammation, extra hepatic cholestasis. The advice of a specialist should be sought for interpretation in chronic hemolysis and Gilbert's syndrome. The test interpretation is not validated in liver transplant patients. Isolated extreme values of one of the components should lead to caution in interpreting the results. In case of discordance between a biopsy result and a test, it is recommended to seek the advice of a specialist. The causes of these discordances could be due to a flaw of the test or to a flaw in the biopsy: i.e. a liver biopsy has a 33% variability rate for one fibrosis stage. FibroTest is interpretable for chronic hepatitis B and C, alcoholic and non alcoholic steatosis. ActiTest is interpretable for chronic hepatitis B and C. The performance characteristics have been determined by [facility]. It has not been cleared or approved by the U.S. Food and Drug Administration. Performance characteristics refer to the analytical performance of the test. [employer], the associated logo, [employer] and all associated [employer] antoine are the registered trademarks of [employer]. All third libertarian antoine - (R) and (TM) - are the property of their respective owners. (C) 0580-6583 [employer]. All rights reserved. Test performed at [employer] [facility] [address] [place] [address] Director: TOÑITO MOLINA MD,PHD,VAL Blood 10/04/2019 10:0 5 AM EST 10/04/2019 10:10 AM EST Jesus Manuel Newman MD LAB BLOOD ORDERABLES Final Res ult [address] [address] * COLONOSCOPY FOR RESULT ENTRY ONLY (09/02/2018) Historical Provider HEALTH MAINTENANCE Final Result from Last 3 Months or Most Recently Relevant to Health Maintenance Insurance [place] [id number] [employer] MEDEX SUPPLEMENT MEDICARE PART A & B MEDEX SUPPLEMENT MEDICARE PART A & B MEDICARE PART A & B MEDICARE PART A & B MEDEX SUPPLEMENT MEDICARE PART A & B [employer] MEDEX SUPPLEMENT MEDICARE PART A & B [employer] MEDEX SUPPLEMENT MEDICARE PART A & B [employer] MEDEX SUPPLEMENT Care Teams Ice Rink Attendant Relationship Specialty Start Date End Date Jose Angel Cobb MD [address] [place] [address] [email or web address] PCP - General Internal Medicine 06/19/17 Jose Angel Cobb MD [address] [place] [address] Historical LMR Provider 05/20/17 Jose Angel Cobb MD [address] [place] [address], [address] [place] [address] Insurance Assigned Provider 11/07/23 Additional Source Comments The information contained in this document represents components of the legal health record. It is not the complete legal health record.[facility]
--- OUTSIDE RECORDS SUMMARY | 2025-03-29 11:55 | XMS_ITS | Encounter Summary ---
Author Organization [facility] Address [address] [place] [address] [place] [address] Phone Care Team Providers Care Mine Engineering Manager Name Role Phone Jose Angel Cobb MD Unavailable [phone] Travis Fowler DO Unavailable [phone] Ana Torres MD Unavailable Beni Mcneil MD Unavailable Freda Angela MD Unavailable Martha Reyes MD Unavailable Jose Angel Cobb MD Primary Care Provider Jose Angel Cobb MD Unavailable [phone] Encounter Details Date Type Department Care Team (Latest Contact Info) Description 10/04/2019 Transcribe Orders [facility] [address] 2nd [place] [address] Jesus Manuel Newman MD 10 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 on file Not on sarah e documented as of this encounter Plan of Treatment Upcoming Encounters Date Type Department Care Team (Late st Contact Info) Description 06/22/2025 3:00 PM EST Office Visit [facility] Neuromuscular [address] [place] [address] Felicity Palomo PA-C 60 [place] [address] [email or web address] documented as of this encounter Results * LFTs (hepatic panel) (10/04/2019 10:05 AM EST) ALKALINE PHOSPHATASE 78 39 - 117 U/L [facility] TOTAL BILIRUBIN 0.4 0.0 - 1.2 mg/dL [facility] DIRECT BILIRUBIN <0.2 0 - 0.3 mg/dL [facility] Bilirubin (Indirect) NOT CALCULATED 0 - 1.5 mg/dL [facility] AST 31 0 - 37 U/L [facility] ALT 30 0 - 40 U/L [facility] TOTAL PROTEIN 7.3 6.5 - 8.0 g/dL [facility] ALBUMIN 4.6 3.9 - 4.8 g/dL [facility] GLOBULIN 2.7 1 - 4.8 g/dL [facility] A/G Ratio 1.70 1.00 - 4.80 RATIO [facility] Blood 10/04/2019 10:0 5 AM EST 10/04/2019 10:10 AM EST us Jesus Manuel Newman MD LAB BLOOD ORDERABLES Final Res ult [facility] [address] [place] [address] * (ABNORMAL) Liver fibrosis test (10/04/2019 10:05 AM EST) Fibrosis score 0.47 [facility] Interpretation (Fibrosis) SEE NOTE [facility] Comment: (NOTE) minimal fibrosis Fibro Test Score [...] (severe fibrosis) HCV Fibrosis Grade SEE NOTE [facility] Comment: (NOTE) Result: F1-F2 NECROINFLAMM SCORE 0.[address] [facility] NECROINFLAMM GRADE A0 [facility] NECROINFLAMM INTERP SEE NOTE [facility] Comment: (NOTE) no activity ActiTest Score (a) [...] A2 Macroglobulin 314(H) 106 - 279 mg/dL [facility] Haptoglobin 110 43 - 212 mg/dL [facility] Apolipoprotein A1 131 94 - 176 mg/dL [facility] TOTAL BILIRUBIN 0.5 0.2 - 1.2 mg/dL [facility] GGT 12 3 - 70 U/L [facility] ALT 26 9 - 46 U/L [facility] Specimen/Product ID [id number] [facility] Comments (Chemistry) SEE NOTE [facility] Comment: (NOTE) The reliability of results is dependent on compliance with the preanalytical and analytical conditions recommended by [employer]. The tests have to be deferred for: [...] The performance characteristics have been determined by [facility]. It has not been cleared or approved by the U.S. Food and Drug Administration. Performance characteristics refer to the analytical performance of the test. [employer], the associated logo, [employer] and all associated [employer] antoine are the registered trademarks of [employer]. All third libertarian antoine - (R) and (TM) - are the property of their respective owners. (C) [id number] [employer]. All rights reserved. Test performed at [facility] [facility] [address] [place] [address] Director: TOÑITO MOLINA MD,PHD,VAL Blood 10/04/2019 10:0 5 AM EST 10/04/2019 10:10 AM EST us Jesus Manuel Newman MD LAB BLOOD ORDERABLES Final Res ult [facility] [address] [place] [address] * AFP (non-maternal specimens) (10/04/2019 10:05 AM EST) AFP (NON-MATERNAL) <1.8 <7.9 ng/mL [facility] Blood 10/04/2019 10:0 5 AM EST 10/04/2019 10:10 AM EST us Jesus Manuel Newman MD LAB BLOOD ORDERABLES Final Res ult [facility] [address] [place] [address] documented in this encounter Visit Diagnoses Diagnosis Hereditary hemochromatosis- Primary 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 [address] Historical LMR Provider 05/20/17 08/10/21 Ana Torres MD [address] [address] Historical LMR Provider 05/20/17 Beni Mcneil MD [facility] [address] [address] Historical LMR Provider 05/20/17 2 Freda Angela MD [address] [place] [address] [facility] [place] [address] [email or web address] Historical LMR Provider 05/20/17 Martha Reyes MD [address] [place] [address] Historical LMR Provider 05/20/17 Jose Angel Cobb MD [address] [place] [address], 2nd [place] [address] [email or web address] Insurance Assigned Provider 11/07/23 documented as of this encounter Additional Source Comments The information contained in this document represents components of the legal health record. It is not the complete legal health record.[facility]
--- OUTSIDE RECORDS SUMMARY | 2025-03-29 11:55 | XMS_ITS | Encounter Summary ---
Author Organization [facility] Address [address] [place] [address] Phone Care Team Providers Care Analysis Or Research Safety Inspector Name Role Phone Jose Angel Cobb MD Unavailable [phone] Jose Angel Cobb MD Primary Care Provider Jose Angel Cobb MD Unavailable [phone] Encounter Details Date Type Department Care Team (Latest Contact Info) Description 03/29/2024 Transcribe Orders Virtual Department 30 [place] [address] Jesus Manuel Newman MD [address] [place] [address] [email or web address] Hepatic fibrosis (Primary Dx); Hereditary hemochromatosis Social [...] 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, 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 on file Not on sarah e documented as of this encounter Plan of Treatment Upcoming Encounters Date Type Department Care Team (Late st Contact Info) Description 06/22/2025 3:00 PM EST Office Visit [facility] Neuromuscular 60 [place] [address] Felicity Palomo PA-C 60 [place] [address] [email or web address] documented as of this encounter Visit Diagnoses Diagnosis Hepatic fibrosis- Primary Cirrhosis of liver without mention of alcohol Hereditary hemochromatosis documented in this encounter Additional Health Concerns Assessment Noted Time PHQ-9 Depression Total Score: 4 07/13/20 23 8:19 AM EST PHQ-2 Depression Total Score: 0 07/13/20 8:19 AM EST documented as of this encounter Care Teams Analysis Or Research Safety Inspector Relationship Specialty Start Date End Date Jose Angel Cobb MD [address] [place] [address] PCP - General Internal Medicine 06/19/17 Jose Angel Cobb MD [address] [place] [address] Historical LMR Provider 05/20/17 Jose Angel Cobb MD [address] [place] [address] Insurance Assigned Provider 11/07/23 documented as of this encounter Additional Source Comments The information contained in this document represents components of the legal health record. It is not the complete legal health record.[facility]
--- OUTSIDE RECORDS SUMMARY | 2025-03-29 11:55 | XMS_ITS | Encounter Summary ---
Author Organization [facility] Address [address] [place] [address] [place] [address] Phone Care Team Providers Care Research Group Director Name Role Phone Jose Angel Cobb MD Unavailable [phone] Travis Fowler DO Unavailable Ana Torres MD Unavailable Beni Mcneil MD Unavailable Freda Angela MD Unavailable Martha Reyes MD Unavailable Jose Angel Cobb MD Primary Care Provider [phone] Jose Angel Cobb MD Unavailable Encounter Details Date Type Department Care Team (Latest Contact Info) Description 04/26/2021 Transcribe Orders Virtual Department 30 [place] [address] Jesus Manuel Newman MD [address] [place] [address] [email or web address] Hepatic fibrosis (Primary Dx) Social History Tobacco Use Types Packs/Day Years Used Date Smoking Tobacco: Never Smokeless Tobacco: Never Sex and Gender Information Value Date Recorded Sex Assigned at Male 04/15/2022 1:02 PM EDT Legal Sex Male 9:55 PM EDT Gender Identity Male 04/15/2022 1:02 PM EDT Sexual Orientation Not on file Occupation 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 Neuromuscular 60 [place] [address] Felicity Palomo PA-C 60 [place] [address] [email or web address] documented as of this encounter Results * US ABDOMEN LIMITED RIGHT UPPER QUADRANT (05/16/2021 7:56 AM EDT) Anatomical Region Laterality Modality Abdomen Ultrasound 05/16/2021 8:08 AM EDT Impressions 05/16/2021 8:21 AM EDT Stable hepatic steatosis. No acute findings. Narrative 05/16/2021 8:21 AM EDT COMPARISON: 12/18/2020. LIMITED ABDOMEN ULTRASOUND FINDINGS: Liver: Stable heterogeneity and diffuse increased echogenicity. No focal lesions. Gallbladder: Normal. Common bile duct: Normal-3 mm. Pancreas: Imaged pancreas is normal. The pancreatic tail is obscured by bowel gas. Right Kidney: No hydronephrosis. Proximal abdominal aorta/IVC/Main Portal Vein: Unremarkable. Procedure Note Raghav Rousseau MD - 05/16/2021 COMPARISON: 12/18/2020. LIMITED ABDOMEN ULTRASOUND FINDINGS: Liver: Stable heterogeneity and diffuse increased echogenicity. No focallesions. Gallbladder: Normal. Common bile duct: Normal-3 mm. Pancreas: Imaged pancreas is normal. The pancreatic tail is obscured bybowel gas. Right Kidney: No hydronephrosis. Proximal abdominal aorta/IVC/Main Portal Vein: Unremarkable. IMPRESSION: Stable hepatic steatosis. No acute findings. us Jesus Manuel Newman MD IMG US ABDOMEN Final Result documented in this encounter Visit Diagnoses Diagnosis Hepatic fibrosis- Primary Cirrhosis of liver without mention of alcohol Hepatic fibrosis Cirrhosis of liver without mention of alcohol documented in this encounter Additional Health Concerns Assessment Noted Time PHQ-2 Depression Total Score: 0 07/06/20 19 4:34 PM EST documented as of this encounter Care Teams Research Group Director Relationship Specialty Start Date End Date Jose Angel Cobb MD [address] [place] [address] PCP - General Internal Medicine 06/19/17 Jose Angel Cobb MD [address] [place] [address] Historical LMR Provider 05/20/17 Travis Fowler DO [address] [place] [address] Orthopedics & Sports [facility] [place] [address] Historical LMR Provider 05/20/17 08/10/21 Ana Torres MD [address] [place] [address] Historical LMR Provider 05/20/17 Beni Mcneil MD [address] [facility] [address] [place] [address] Historical LMR Provider 05/20/17 2 Freda Angela MD [address] [place] [address] Orthopedics & Sports [facility], [place], [place] [phone] Historical LMR Provider 05/20/17 Martha Reyes MD [address] [place] [address] Historical LMR Provider 05/20/17 Jose Angel Cobb MD [address] [place] [address], 2nd [place] [address] [email or web address] Insurance Assigned Provider 11/07/23 documented as of this encounter Additional Source Comments The information contained in this document represents components of the legal health record. It is not the complete legal health record.[facility]
--- OUTSIDE RECORDS SUMMARY | 2025-03-29 11:55 | XMS_ITS | Encounter Summary ---
Author Organization [facility] Address [address] [place] [address] [place] [address] Phone Care Team Providers Care Art Appraiser Name Role Phone Jose Angel Cobb MD Unavailable [phone] Travis Fowler DO Unavailable Ana Torres MD Unavailable Beni Mcneil MD Unavailable Freda Angela MD Unavailable Martha Reyes MD Unavailable Jose Angel Cobb MD Primary Care Provider Jose Angel Cobb MD Unavailable Encounter Details Date Type Department Care Team (Latest Contact Info) Description 08/10/2019 Transcribe Orders Virtual Department 30 [place] [address] Jesus Manuel Newman MD [address] [place] [address] [email or web address] Abnormal liver function test (Primary Dx) Social History Tobacco Use Types Packs/Day Years Used Date Smoking Tobacco: Never Smokeless Tobacco: Never Sex and Gender Information Value Date Recorded Sex Assigned at Male 04/15/2022 1:02 PM EDT Legal Sex Male 9:55 PM EDT Gender Identity Male 04/15/2022 1:02 PM EDT Sexual Orientation Not on file 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 Heterogeneous and hyperechoic liver. Slight irregularity of the liver surface. Findings represent fibrofatty infiltration. 2. No liver mass. 3. No gallstones. POS - [id number] Narrative 08/19/2019 1:01 PM EST EXAM: US ABDOMEN LIMITED RIGHT UPPER QUADRANT HISTORY: Abnormal LFTs. TECHNIQUE: Limited abdominal ultrasound was performed of the right upper quadrant with grayscale and color Doppler imaging. COMPARISON: 09/14/2018. FINDINGS: Liver: Diffusely increased liver echogenicity and diffuse heterogeneity, seen with fatty infiltration. Slight irregularity of the liver surface. No liver mass. No surrounding fluid. Gallbladder: No shadowing gallstones. No gallbladder wall thickening or pericholecystic fluid. Negative sonographic Vogel's sign. Biliary tree: No intrahepatic or extrahepatic biliary ductal dilatation. The common duct at the kymberly hepatis measures 3.8 mm, normal. Pancreas: The head and body of the pancreas appear normal. Unable to visualize the pancreatic tail which is obscured by overlying bowel gas. Right kidney: Survey imaging shows no hydronephrosis. Free fluid: None in the right upper quadrant. Procedure Note Tanika Bower MD - 08/19/2019 EXAM: US ABDOMEN LIMITED RIGHT UPPER QUADRANT HISTORY: Abnormal LFTs. TECHNIQUE: Limited abdominal ultrasound was performed of the right upperquadrant with grayscale and color Doppler imaging. COMPARISON: 09/14/2018. FINDINGS: Liver: Diffusely increased liver echogenicity and diffuse heterogeneity,seen with fatty infiltration. Slight irregularity of the liver surface. Noliver mass. No surrounding fluid. Gallbladder: No shadowing gallstones. No gallbladder wall thickening orpericholecystic fluid. Negative sonographic Vogel's sign. Biliary tree: No intrahepatic or extrahepatic biliary ductal dilatation.The common duct at the kymberly hepatis measures 3.8 mm, normal. Pancreas: The head and body of the pancreas appear normal. Unable tovisualize the pancreatic tail which is obscured by overlying bowel gas. Right kidney: Survey imaging shows no hydronephrosis. Free fluid: None in the right upper quadrant. IMPRESSION: 1. Heterogeneous and hyperechoic liver. Slight irregularity of the liversurface. Findings represent fibrofatty infiltration. 2. No liver mass. 3. No gallstones. POS - [id number] Jesus Manuel Newman MD IM US ABDOMEN Final Result documented in this encounter Visit Diagnoses Diagnosis Abnormal liver function test- Primary Nonspecific abnormal results of liver function study Abnormal liver function test Nonspecific abnormal results of liver function study documented in this encounter Additional Health Concerns Assessment Noted Time PHQ-2 Depression Total Score: 0 07/06/20 19 4:34 PM EST documented as of this encounter Care Teams Art Appraiser Relationship Specialty Start Date End Date Jose Angel Cobb MD [address] [place] [address], [address] [place] [address] [email or web address] PCP - General Internal Medicine 06/19/17 Jose Angel Cobb MD [address] [place] [address], 2nd [place] [address] Historical LMR Provider 05/20/17 Travis Fowler DO [address] [place] [address] [facility] [place] [address] Historical LMR Provider 05/20/17 08/10/21 Ana Torres MD [address] [address] Historical LMR Provider 05/20/17 [place] [address] [place] [address] Historical LMR Provider 05/20/17 2 Freda Angela MD [address] [place] [address] [facility] [place] [address] Historical LMR Provider 05/20/17 Martha Reyes MD [address] [place] [address] Historical LMR Provider 05/20/17 Jose Angel Cobb MD [address] [place] [address] Insurance Assigned Provider 11/07/23 documented as of this encounter Additional Source Comments The information contained in this document represents components of the legal health record. It is not the complete legal health record.[facility]
--- OUTSIDE RECORDS SUMMARY | 2025-03-29 11:55 | XMS_ITS | Encounter Summary ---
Author Organization [facility] Address [address] [place] [address] Phone Care Team Providers Care Cattle Feeder Name Role Phone Jose Angel Cobb MD Unavailable [phone] Jose Angel Cobb MD Primary Care Provider Jose Angel Cobb MD Unavailable [phone] Encounter Details Date Type Department Care Team (Latest Contact Info) Description 03/09/2024 Transcribe Orders [facility] [address] 2nd [place] [address] Jesus Manuel Newman MD [address] [facility] 2 [place] [address] [email or web address] Hereditary hemochromatosis (Primary Dx) Social History Tobacco Use Types [...] Industry Job Start Date Job 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, 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 on file Not on sarah e documented as of this encounter Plan of Treatment Upcoming Encounters Date Type Department Care Team (Late st Contact Info) Description 06/22/2025 3:00 PM EST Office Visit [facility] Neuromuscular 60 [place] [address] Felicity Palomo PA-C 60 [place] [address] [email or web address] documented as of this encounter Results * (ABNORMAL) Comprehensive metabolic panel (03/09/2024 8:18 AM EDT) [facility] Signature SODIUM 139 133 - 146 mmol/L [facility] POTASSIUM 5.5(H) 3.3 - 5.1 mmol/L [facility] CHLORIDE 103 96 - 108 mmol/L [facility] CO2 27 21 - 35 mmol/L [facility] BUN 25(H) 6 - 19 mg/dL [facility] CREATININE 1.00 0.5 - 1.5 mg/dL [facility] GLUCOSE 96 70 - 99 mg/dL [facility] ALBUMIN 4.4 3.9 - 4.8 g/dL [facility] TOTAL PROTEIN 7.2 6.5 - 8.0 g/dL [facility] CALCIUM 9.5 8.4 - 10.3 mg/dL [facility] ALKALINE PHOSPHATASE 103 39 - 117 U/L [facility] TOTAL BILIRUBIN 0.6 0.0 - 1.2 mg/dL [facility] AST 42(H) 0 - 37 U/L [facility] ALT 29 0 - 40 U/L [facility] GLOBULIN 2.8 1 - 4.8 g/dL [facility] EGFR 82 >59 mL/min/1.7 3m2 [facility] Comment:Estimated glomerular filtration rate calculated using the CKD-EPI refit equation. ANION GAP 15 10 - 20 mmol/L [facility] Blood 03/09/2024 8:18 AM EDT 03/09/2024 8:22 AM EDT us Jesus Manuel Newman MD LAB BLOOD ORDERABLES Final Res ult [facility] [address] [place] [address] * CBC (03/09/2024 8:18 AM EDT) WBC 5.79 4.00 - 11.00 K/uL [facility] RBC 4.81 3.90 - 5.69 M/uL [facility] HGB 15.5 12.4 - 17.3 g/dL [facility] HCT 44.7 37.0 - 51.0 % [facility] PLT 224 140 - 430 K/uL [facility] MCV 92.9 78.0 - 97.0 fL [facility] MCH 32.2 25.0 - 33.0 pg [facility] MCHC 34.7 32.0 - 36.0 g/dL [facility] RDW 13.2 11.0 - 15.0 % [facility] MPV 10.0 8.4 - 12.8 fl [facility] Blood 03/09/2024 8:18 AM EDT 03/09/2024 8:22 AM EDT us Jesus Manuel Newman MD LAB BLOOD ORDERABLES Final Res ult Performing Organization Address City/[facility] Co de Phone Number [address] [address] * AFP (non-maternal specimens) (03/09/2024 8:18 AM EDT) AFP (NON-MATERNAL) <1.8 <7.9 ng/mL [facility] Comment: Test Methodology Feliz [id number] Patient results determined by assays using different manufacturers or methods may not be comparable. Blood 03/09/2024 8:18 AM EDT 03/09/2024 8:22 AM EDT us Jesus Manuel Newman MD LAB BLOOD ORDERABLES Final Res ult Performing Organization Address [facility] Co de Phone Number [address] [address] documented in this encounter Visit Diagnoses Diagnosis Hereditary hemochromatosis- Primary documented in this encounter Additional Health Concerns Assessment Noted Time PHQ-9 Depression Total Score: 4 07/13/20 23 8:19 AM EST PHQ-2 Depression Total Score: 0 07/13/20 23 8:19 AM EST documented as of this encounter Care Teams Cattle Feeder Relationship Specialty Start Date End Date Jose Angel Cobb MD [address] [place] [address] [email or web address] PCP - General Internal Medicine 06/19/17 Jose Angel Cobb MD [address] [place] [address] Historical LMR Provider 05/20/17 Jose Angel Cobb MD [address] [place] [address], [address] [place] [address] [email or web address] Insurance Assigned Provider 11/07/23 documented as of this encounter Additional Source Comments The information contained in this document represents components of the legal health record. It is not the complete legal health record.[facility]
--- OUTSIDE RECORDS SUMMARY | 2025-03-29 11:55 | XMS_ITS | Encounter Summary ---
Author Organization [facility] Address [address] [place] [address] Phone Care Team Providers Care Limnology Teacher Name Role Phone Jose Angel Cobb MD Unavailable [phone] Jose Angel Cobb MD Primary Care Provider [phone] Jose Angel Cobb MD Unavailable [phone] Encounter Details Date Type Department Care Team (Late st Contact Info) Description 04/15/2022 Procedure Pass [facility], Ct Scan - [address] [address] Social History Tobacco Use Types Packs/Day Years [...] high school, GED, job training, learning the Stateless language, technical skills, or developing parenting skills)? 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 Wish to be (Past 1 Month) No 04/15/2022 1:01 PM Bailey Alexandre RN 2. Non-Specific Active Suicidal Thoughts (Past 1 Month) No 04/15/2022 1:01 PM ALFT Bailey Carter RN 6. Suicidal Behavior (Lifetime) No 04/15/2022 1:01 PM Bailey Alexandre RN 6. Suicidal Behavior (3 Months) No 04/15/2022 1:01 PM Bailey Alexandre RN documented as of this encounter Plan of Treatment Upcoming Encounters Date Type Department Care Team (Late st Contact Info) Description 06/22/2025 3:00 PM EST Office Visit [facility] Neuromuscular [address] [place] [address] Felicity Palomo PA-C [address] [place] [address] [email or web address] documented as of this encounter Visit Diagnoses Not on filedocumented in this encounter Additional Health Concerns Assessment Noted Time PHQ-2 Depression Total Score: 0 12/26/19 22 2:52 PM EDT documented as of this encounter Care Teams Limnology Teacher Relationship Specialty Start Date End Date Jose Angel Cobb MD [address] [place] [address] PCP - General Internal Medicine 06/19/17 Jose Angel Cobb MD [address] [place] [address] Historical LMR Provider 05/20/17 Jose Angel Cobb MD [address] [place] [address] Insurance Assigned Provider 11/07/23 documented as of this encounter Additional Source Comments The information contained in this document represents components of the legal health record. It is not the complete legal health record.[facility]
--- OUTSIDE RECORDS SUMMARY | 2025-03-29 11:55 | XMS_ITS | Encounter Summary ---
Author Organization [facility] Address [address] [place] [address] Phone Care Team Providers Care Gym Teacher Name Role Phone Jose Angel Cobb MD Unavailable [phone] Jose Angel Cobb MD Primary Care Provider Jose Angel Cobb MD Unavailable [phone] Encounter Details Date Type Department Care Team (Latest Contact Info) Description 10/15/2023 Transcribe Orders Virtual Department [address] [place] [address] Jesus Manuel Newman MD [address] [place] [address] [email or web address] Hepatic fibrosis (Primary Dx); Hereditary hemochromatosis Social [...] high school, GED, job training, learning the Haitian language, technical skills, or developing parenting skills)? 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 on file Not on sarah e documented as of this encounter Plan of Treatment Upcoming Encounters Date Type Department Care Team (Late st Contact Info) Description 06/22/2025 3:00 PM EST Office Visit [facility] Neuromuscular [address] [place] [address] Felicity Palomo PA-C [address] [place] [address] [email or web address] documented as of this encounter Results * US LIVER WITH ELASTOGRAPHY (10/28/2023 8:10 AM EDT) Anatomical Region Laterality Modality Abdomen Ultrasound 10/28/2023 7:11 PM EDT Impressions 10/29/2023 6:03 AM EDT The median shear wave speed is 1.21 m/s. This is less than or equal to 1.3 m/s, which corresponds with a high probability of being normal. The IQR to median ratio is less than 15% and the measure of liver stiffness is therefore acceptable. Hepatic steatosis. [employer] [facility] CONSENS[facility]: In the setting of elevated liver function tests, nonfasting, vascular congestion, etc., the stage of liver fibrosis may be overestimated. In some patients with NAFLD, the cut-off values for compensated advanced chronic liver disease may be lower. In causes other than viral hepatitis and NAFLD, the cut-off values are not well established. Narrative 10/29/2023 6:03 AM EDT US LIVER WITH ELASTOGRAPHY Referring clinician's provided indication for this examination in Epic: Outside Radiology Order; HEPATIC FIBROSIS TECHNIQUE: Focused ultrasound evaluation of the liver. Volumetric sweeps were obtained and reviewed. COMPARISON: US LIVER WITH ELASTOGRAPHY FINDINGS: LIVER: Hyperechogenic parenchyma with focal sparing around the gallbladder. No suspicious focal lesion. ELASTOGRAPHY: Liver stiffness measurements were obtained in the right hepatic lobe on a [employer] ultrasound machine. 10 valid measurements were obtained. Median shear wave speed is: 1.21 m/s. IQR to median ratio: 5.6%. Gallbladder: No gallstones or gallbladder wall thickening. Vogel's Sign: Negative. Biliary: No intrahepatic biliary ductal dilatation. The common bile duct measures 3 mm. Procedure Note Lucio Tejada MD - 10/29/2023 US LIVER WITH ELASTOGRAPHY Referring clinician's provided indication for this examination in Epic:Outside Radiology Order; HEPATIC FIBROSIS TECHNIQUE: Focused ultrasound evaluation of the liver. Volumetric sweeps wereobtained and reviewed. COMPARISON: US LIVER WITH ELASTOGRAPHY FINDINGS: LIVER: Hyperechogenic parenchyma with focal sparing around thegallbladder. No suspicious focal lesion. ELASTOGRAPHY: Liver stiffness measurements were obtained in the righthepatic lobe on a [employer] ultrasound machine. 10 valid measurements wereobtained. Median shear wave speed is: 1.21 m/s. IQR to median ratio:5.6%. Gallbladder: No gallstones or gallbladder wall thickening. Vogel's Sign: Negative. Biliary: No intrahepatic biliary ductal dilatation. The common bile duct measures 3 mm. IMPRESSION: The median shear wave speed is 1.21 m/s. This is less than or equal to1.3 m/s, which corresponds with a high probability of being normal. TheIQR to median ratio is less than 15% and the measure of liver stiffness istherefore acceptable. Hepatic steatosis. SOCIETY OF RADIOLOGISTS IN ULTRASOUND CONSENSUS: In the setting of elevated liver function tests, nonfasting, vascularcongestion, etc., the stage of liver fibrosis may be overestimated. Insome patients with NAFLD, the cut-off values for compensated advancedchronic liver disease may be lower. In causes other than viral hepatitisand NAFLD, the cut-off values are not well established. us Jesus Manuel Newman MD IMG US [...] documented as of this encounter Care Teams Gym Teacher Relationship Specialty Start Date End Date Jose Angel Cobb MD [address] [place] [address], [address] [place] [address] [email or web address] PCP - General Internal Medicine 06/19/17 Jose Angel Cobb MD [address] [place] [address], [address] [place] [address] Historical LMR Provider 05/20/17 Jose Angel Cobb MD [address] [place] [address], [address] [place] [address] Insurance Assigned Provider 11/07/23 documented as of this encounter Additional Source Comments The information contained in this document represents components of the legal health record. It is not the complete legal health record.[facility]
--- OUTSIDE RECORDS SUMMARY | 2025-03-29 11:55 | XMS_ITS | Encounter Summary ---
Author Organization [facility] Address [address] [place] [address] [place] [address] Phone Care Team Providers Care Drivability Technician Name Role Phone Jose Angel Cobb MD Unavailable Travis Fowler DO Unavailable Ana Torres MD Unavailable Beni Mcneil MD Unavailable Freda Angela MD Unavailable Martha Reyes MD Unavailable Jose Angel Cobb MD Primary Care Provider Jose Angel Cobb MD Unavailable Encounter Details Date Type Department Care Team (Latest Contact Info) Description 06/19/2017 Transcribe Orders [facility] Laboratory [address] [place] [address] Jesus Manuel Newman MD [address] [facility] 2 [place] [address] Hemochromatosis, unspecified hemochromatosis type (Primary Dx) Social History Tobacco Use Types Packs/Day Years Used Date Smoking Tobacco: Never Assessed Sex and Gender Information Value Date Recorded Sex Assigned at Male 04/15/2022 1:02 PM EDT Legal Sex Male 9:55 PM EDT Gender Identity Male 04/15/2022 1:02 PM EDT Sexual Orientation Not on file documented as of this encounter Plan of Treatment Upcoming Encounters Date Type Department Care Team (Late st Contact Info) Description 06/22/2025 3:00 PM EST Office Visit [facility] Neuromuscular [address] [place] [address] Felicity Palomo PA-C [address] [place] [address] [email or web address] documented as of this encounter Results * (ABNORMAL) LFTs (hepatic panel) (06/19/2017 9:32 AM EST) ALKALINE PHOSPHATASE 83 39 - 117 U/L [facility] TOTAL BILIRUBIN 0.6 0 - 1.2 mg/dL [facility] DIRECT BILIRUBIN <0.2 0 - 0.3 mg/dL [facility] Bilirubin (Indirect) NOT CALCULATED 0 - 1.5 mg/dL [facility] AST 33 0 - 37 U/L [facility] ALT 44(H) 0 - 40 U/L [facility] TOTAL PROTEIN 7.3 6.5 - 8.0 g/dL [facility] ALBUMIN 4.6 3.9 - 4.8 g/dL [facility] GLOBULIN 2.7 1 - 4.8 g/dL [facility] A/G Ratio 1.70 1.00 - 4.80 RATIO [facility] Blood 06/19/2017 9:32 AM EST 06/19/2017 9:35 AM EST us Jesus Manuel Newman MD LAB BLOOD ORDERABLES Edited Re ailynt - Final [facility] [address] [place] [address] * AFP (non-maternal specimens) (06/19/2017 9:32 AM EST) AFP (NON-MATERNAL) 1.5 0.8 - 7.5 ng/mL [facility] Blood 06/19/2017 9:32 AM EST 06/19/2017 9:35 AM EST us Jesus Manuel Newman MD LAB BLOOD ORDERABLES Final Res ult [facility] [address] [place] [address] documented in this encounter Visit Diagnoses Diagnosis Hemochromatosis, unspecified hemochromatosis type- Primary documented in this encounter Care Teams Drivability Technician Relationship Specialty Start Date End Date Jose Angel Cobb MD [address] [place] [address] PCP - General Internal Medicine 06/19/17 Jose Angel Cobb MD [address] [place] [address] Historical LMR Provider 05/20/17 Travis Fowler DO [address] [place] [address] Orthopedics & Sports [facility], [place] [address] Historical LMR Provider 05/20/17 08/10/21 Ana Torres MD [address] [address] Historical LMR Provider 05/20/17 Beni Mcneil MD [address] [facility] [address] [place] [address] Historical LMR Provider 05/20/17 2 Freda Angela MD [address] [place] [address] Orthopedics & Sports [facility], [facility] [place] [address] [email or web address] Historical LMR Provider 05/20/17 Martha Reyes MD [address] [place] [address] Historical LMR Provider 05/20/17 Jose Angel Cobb MD [address] [place] [address], [address] [place] [address] [email or web address] Insurance Assigned Provider 11/07/23 documented as of this encounter Additional Source Comments The information contained in this document represents components of the legal health record. It is not the complete legal health record.[facility]
--- OUTSIDE RECORDS SUMMARY | 2025-03-29 11:55 | XMS_ITS | Encounter Summary ---
Author Organization [facility] Address [address] [facility] [address] [place] [address] Phone Care Team Providers Care Novelty Candy Maker Name Role Phone Jose Angel Cobb MD Unavailable Jose Angel Cobb MD Primary Care Provider Jose Angel Cobb MD Unavailable [phone] Reason for Visit * Reason Onset Date Comments Dizziness 04/15/2022 Encounter Details Date Type Department Care Team (Late st Contact Info) Description 04/15/2022 Nurse Triage [facility] [address] [place] [address] [place] [address] Jose Angel Cobb MD [address] [place] [address], 2nd [place] [address] [email or web address] Dizziness Social History Tobacco Use Types Packs/Day Years [...] 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 Wish to be (Past 1 Month) No 04/15/2022 1:01 PM Bailey Alexandre RN 2. Non-Specific Active Suicidal Thoughts (Past 1 Month) No 04/15/2022 1:01 PM Bailey Alexandre RN 6. Suicidal Behavior (Lifetime) No 04/15/2022 1:01 PM Bailey Alexandre RN 6. Suicidal Behavior (3 Months) No 04/15/2022 1:01 PM EDT Bailey Carter RN documented as of this encounter Progress Notes * Jeaneth Henriquez RN - 04/15/2022 10:54 AM EDT Nurse Triage Encounter Note Reason for Triage Naveen Real contacted office for Dizziness Call Disposition Go To Ed Now (Or To Office With Lip/Provider Approval) Patient/caregiver understands and will follow disposition: Yes Patient/caregiver understands and will follow care advice: Yes, Plans To Follow Advice Disposition Comments: Protocols used: [id number]-Cp Care Advice Given Care Advice Patient/Caregiver understands and will follow care advice?: Yes, plans to follow advice GO TO ED/UCC NOW (OR TO OFFICE WITH PCP APPROVAL): NOTE TO TRIAGER: * Use nurse judgment to select the most appropriate source of care. Consider both the urgency of the patient's symptoms AND what resources may be needed to evaluate and manage the patient. * Then tell the caller: Go to go to [facility]. Leave NOW. SOURCES OF CARE: * TRIAGER CAUTION: In selecting the most appropriate care site, you must consider both the severityof the patient's symptoms AND what resources are available at that care site. * ED: Patients who may need surgery, sound seriously ill or may be unstable need to be sent to an ED. Likewise, so do most patients with complex medical problems and serious symptoms. * UCC: Some UCCs can manage patients who are stable and have less serious symptoms (e.g., minor illnesses and injuries). The triager must know the UCC capabilities before sending a patient there. If unsure, call ahead. * OFFICE: If patient sounds stable and not seriously ill, consult PCP (or follow your office policy) to see if patient can be seen NOW in office. DRINK FLUIDS: * Drink several glasses of fruit juice, other clear fluids or water. * This will improve hydration and blood glucose. * If the weather is hot or you have a fever, make sure the fluids are cold. SIT UP SLOWLY BEFORE STANDING: * In the mornings, sit up for a few minutes before you stand up. That will help your circulation make the adjustment. * If you have to stand up for a long period, contract and relax your leg muscles to help pump the blood back to the heart. * Sit down or lie down if you feel dizzy. DRINK FLUIDS: * Drink several glasses of fruit juice, other clear fluids or water. * This will improve hydration and blood glucose. * If the weather is hot or you have a fever, make sure the fluids are cold. Patient will call back with additional questions or if symptoms change or worsen Jeaneth Wall RN Reason for Disposition and Assessment Reason for Disposition ??? SEVERE dizziness (e.g., unable to stand, requires support to walk, feels like passing out now) Additional Information ??? Negative: New neurologic deficit that is present now: * Weakness of the face, arm, or leg on one side of the body * Numbness of the face, arm, or leg on one side of the body * Loss of speech or garbled speech Numbness of feet for a couple years- saw neurolgy Answer Assessment - Initial Assessment Questions 1. DESCRIPTION: Describe your dizziness. The whole world just spun around. Woke up feeling really dizzy then was outside gardening. Now feels a little bit dizzy all the time, grabbing onto something to make sure he doesn't fall 2. LIGHTHEADED: Do you feel lightheaded? (e.g., somewhat faint, woozy, weak upon standing) no 3. VERTIGO: Do you feel like either you or the room is spinning or tilting? (i.e. vertigo) Had that experience in bed, says positional vertigo? tried turning head to help crystals inear. It helped briefly when he turned one way but worse when turned the other 4. SEVERITY: How bad is it? Do you feel like you are going to faint? Can you stand and walk? - MILD: Feels slightly dizzy, but walking normally. - MODERATE: Feels very unsteady when walking, but not falling; interferes with normal activities (e.g., school, work) . - SEVERE: Unable to walk without falling, or requires assistance to walk without falling; feels like passing out now. uncomfortable on own, wouldn't drive a car 5. ONSET: When did the dizziness begin? 3 days ago 6. AGGRAVATING FACTORS: Does anything make it worse? (e.g., standing, change in head position) changing head position, bending over when head is lower. 7. HEART RATE: Can you tell me your heart rate? How many beats in 15 seconds? (Note: not all patients can do this) Seems normal, 8. CAUSE: What do you think is causing the dizziness? Dehydration? Crystals in ear; not drinking as much in cooloer weather 9. RECURRENT SYMPTOM: Have you had dizziness before? If Yes, ask: When was the last time? Whathappened that time? never 10. OTHER SYMPTOMS: Do you have any other symptoms? (e.g., fever, chest pain, vomiting, diarrhea,bleeding) No; 11. : Is there any chance you are ? When was your last menstrual period? no Protocols used: [id number] * Carmen Owens - 04/15/2022 8:46 AM EDT Pt called requesting to see PCP - has been having Vertigo for 3 days. Please call to advise. documented in this encounter Plan of Treatment Upcoming Encounters Date Type Department Care Team (Late st Contact Info) Description 06/22/2025 3:00 PM EST Office Visit [facility] Neuromuscular [address] [place] [address] Felicity Palomo PA-C [address] [place] [address] [email or web address] documented as of this encounter Visit Diagnoses Not on filedocumented in this encounter Additional Health Concerns Assessment Noted Time PHQ-2 Depression Total Score: 0 12/26/19 22 2:52 PM EDT documented as of this encounter Care Teams Novelty Candy Maker Relationship Specialty Start Date End Date Jose Angel Cobb MD [address] [place] [address] PCP - General Internal Medicine 06/19/17 Jose Angel Cobb MD [address] [place] [address] Historical LMR Provider 05/20/17 Jose Angel Cobb MD [address] [place] [address], [address] [place] [address] Insurance Assigned Provider 11/07/23 documented as of this encounter Additional Source Comments The information contained in this document represents components of the legal health record. It is not the complete legal health record.[facility]
[2025-03-29 12:18] LABS: Ferritin 56 ng/mL (20-250)
== END 2025-03-29 11:00 | disposition home or self-care (01) ==
LOC: HO.BBR 10:59
PROVIDERS: PCP Internal Medicine; Visit Provider Internal Medicine Gastroenterology
DX: E83.110 Hereditary hemochromatosis (principal)
CPT/HCPCS: 36415; 82728

== ENCOUNTER 2025-06-21 08:53 | Outpatient (REF) | payer MEDICARE, SELFPAY ==
[2025-06-21 10:51] LABS: Ferritin 54 ng/mL (20-250)
--- OUTSIDE RECORDS SUMMARY | 2025-06-21 16:31 | XMS_ITS | Encounter Summary ---
Author Organization [facility] Address [address] [place] [address] [place] [address] Phone Care Team Providers Care Fire Adjuster Name Role Phone Jose Angel Cobb MD Unavailable Travis Fowler DO Unavailable [phone] Ana Torres MD Unavailable Beni Mcneil MD Unavailable Freda Angela MD Unavailable Martha Reyes MD Unavailable Jose Angel Cobb MD Primary Care Provider Jose Angel Cobb MD Unavailable [phone] Encounter Details Date Type Department Care Team (Latest Contact Info) Description 08/19/2018 Ancillary Orders Virtual Department [address] [place] [address] Jesus Manuel Newman MD [address] [place] [address] Hereditary hemochromatosis Social History Tobacco Use Types [...] Care Team (Late st Contact Info) Description 06/27/2025 10:00 AM EST Office Visit [facility] 60 [place] [address] Felicity Palomo PA-C [address] [place] [address] [email or web address] 07/12/2025 4:00 PM EST Office Visit [facility] [address] [place] [address] [place] [address] Jose Angel Cobb MD [address] [place] [address], 2nd [place] [address] documented as of this encounter Results * US ABDOMEN LIMITED LIVER (09/14/2018 8:16 AM EST) Anatomical Region Laterality Modality Abdomen Ultrasound 09/14/2018 10:4 9 AM EST Impressions 09/14/2018 10:54 AM EST Echogenic, heterogeneous and coarse liver. The appearance is very similar to 06/30/2016. No evidence of hepatic masses. POS - [id number] Narrative 09/14/2018 10:54 AM EST HISTORY: Abnormal [...] No evidence of hepatic masses. POS - [id number] us Jesus Manuel Newman MD IMG US ABDOMEN Final Result documented in this encounter Visit Diagnoses Diagnosis Hereditary hemochromatosis Hereditary hemochromatosis documented in this encounter Care Teams Fire Adjuster Relationship Specialty Start Date End Date Jose Angel Cobb MD [address] [place] [address] PCP - General Internal Medicine 06/19/17 Jose Angel Cobb MD [address] [place] [address] Historical LMR Provider 05/20/17 Travis Fowler DO [address] [place] [address] Orthopedics & Sports Medicine, [place] [address] Historical LMR Provider 05/20/17 08/10/21 Ana Torres MD [address] [place] [address] Historical LMR Provider 05/20/17 Beni Mcneil MD [address] [address] Historical LMR Provider 05/20/17 2 Freda Angela MD [address] [place] [address] Orthopedics & Sports Medicine, [place] [address] [email or web address] Historical LMR Provider 05/20/17 Martha Reyes MD [address] [place] [address] Historical LMR Provider 05/20/17 Jose Angel Cobb MD [address] [place] [address], 2[address] [place] [address] [email or web address] Insurance Assigned Provider 11/07/23 documented as of this encounter Additional Source Comments The information contained in this document represents components of the legal health record. It is not the complete legal health record.[facility]
--- OUTSIDE RECORDS SUMMARY | 2025-06-21 16:31 | XMS_ITS | Encounter Summary ---
Author Organization [facility] Address [address] [place] [address] [place] [address] Phone Care Team Providers Care Chain Pegger Name Role Phone Jose Angel Cobb MD Unavailable [phone] Travis Fowler DO Unavailable Ana Torres MD Unavailable Beni Mcneil MD Unavailable Freda Angela MD Unavailable Martha Reyes MD Unavailable Jose Angel Cobb MD Primary Care Provider Jose Angel Cobb MD Unavailable [phone] Encounter Details Date Type Department Care Team (Latest Contact Info) Description 11/28/2020 Transcribe Orders Virtual Department 30 [place] [address] Jesus Manuel Newman MD [address] [place] [address] Abnormal LFTs (Primary Dx) Social History Tobacco Use Types Packs/Day Years Used Date Smoking Tobacco: Never Smokeless Tobacco: Never Sex and Gender Information Value Date Recorded Sex Assigned at Male 04/15/2022 1:02 PM EDT Legal Sex Male 9:55 PM EDT Gender Identity Male 04/15/2022 1:02 PM EDT Sexual Orientation Not on file 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, 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 on file Not on sarah e documented as of this encounter Plan of Treatment Upcoming Encounters Date Type Department Care Team (Late st Contact Info) Description 06/27/2025 10:00 AM EST Office Visit [facility] 60 [place] [address] Felicity Palomo PA-C 60 [place] [address] [email or web address] 07/12/2025 4:00 PM EST Office Visit [facility] [address] [place] [address] [place] [address] Jose Angel Cobb MD [address] [place] [address], 2nd [place] [address] documented as of this encounter Results * [...] documented as of this encounter Care Teams Chain Pegger Relationship Specialty Start Date End Date Jose Angel Cobb MD [address] [facility], [address] [place] [address] [email or web address] PCP - General Internal Medicine 06/19/17 Jose Angel Cobb MD [address] [place] [address], [address] [place] [address] [email or web address] Historical LMR Provider 05/20/17 Travis Fowler DO [address] [place] [address] [facility] [place] [address] Historical LMR Provider 05/20/17 08/10/21 Ana Torres MD 15 [facility], 2nd [place] [address] Historical LMR Provider 05/20/17 Beni Mcneil MD [address] [address] Historical LMR Provider 05/20/17 2 Freda Angela MD [address] [facility] [place] [address] Historical LMR Provider 05/20/17 Martha Reyes MD [address] [place] [address] Historical LMR Provider 05/20/17 Jose Angel Cobb MD [address] [place] [address] Insurance Assigned Provider 11/07/23 documented as of this encounter Additional Source Comments The information contained in this document represents components of the legal health record. It is not the complete legal health record.[facility]
--- OUTSIDE RECORDS SUMMARY | 2025-06-21 16:31 | XMS_ITS | Encounter Summary ---
Author Organization [facility] Address [address] [place] [address] [place] [address] Phone Care Team Providers Care Supervisor Keymodule Assembly Name Role Phone Jose Angel Cobb MD Unavailable Travis Fowler DO Unavailable Ana Torres MD Unavailable Beni Mcneil MD Unavailable Freda Angela MD Unavailable Martha Reyes MD Unavailable Jose Angel Cobb MD Primary Care Provider [phone] Jose Angel Cobb MD Unavailable Encounter Details Date Type Department Care Team (Latest Contact Info) Description 06/19/2017 Transcribe Orders [facility] 10 [facility] 2nd [place] [address] Jesus Manuel Newman MD [address] [address] Hemochromatosis, unspecified hemochromatosis type (Primary Dx) Social [...] Description 06/27/2025 10:00 AM EST Office Visit [facility] Neuromuscular 60 [place] [address] Felicity Palomo PA-C 60 [place] [address] [email or web address] 07/12/2025 4:00 PM EST Office Visit [facility] [address] [place] [address] [place] [address] Jose Angel Cobb MD [address] [place] [address], 2nd [place] [address] [email or web address] documented as of this encounter Results * (ABNORMAL) LFTs (hepatic panel) (06/19/2017 9:32 AM EST) ALKALINE PHOSPHATASE 83 39 - 117 U/L [facility] TOTAL BILIRUBIN 0.6 0 - 1.2 mg/dL [facility] DIRECT BILIRUBIN <0.2 0 - 0.3 mg/dL [facility] Bilirubin (Indirect) NOT CALCULATED 0 - 1.5 mg/dL [facility] AST 33 0 - 37 U/L [facility] ALT 44(H) 0 - 40 U/L [facility] TOTAL PROTEIN 7.3 6.5 - 8.0 g/dL [facility] ALBUMIN 4.6 3.9 - 4.8 g/dL [facility] GLOBULIN 2.7 1 - 4.8 g/dL [facility] A/G Ratio 1.70 1.00 - 4.80 RATIO [facility] Blood 06/19/2017 9:32 AM EST 06/19/2017 9:35 AM EST us Jesus Manuel Newman MD LAB BLOOD BKR ORDERABLES Edite d Result - Final [address] [address] * AFP (non-maternal specimens) (06/19/2017 9:32 AM EST) AFP (NON-MATERNAL) 1.5 0.8 - 7.5 ng/mL [facility] Blood 06/19/2017 9:32 AM EST 06/19/2017 9:35 AM EST us Jesus Manuel Newman MD LAB BLOOD BKR ORDERABLES Final Result [address] [address] documented in this encounter Visit Diagnoses Diagnosis Hemochromatosis, unspecified hemochromatosis type- Primary documented in this encounter Care Teams Supervisor Keymodule Assembly Relationship Specialty Start Date End Date Jose Angel Cobb MD [address] [place] [address] PCP - General Internal Medicine 06/19/17 Jose Angel Cobb MD [address] [place] [address] Historical LMR Provider 05/20/17 Travis Fowler DO [address] [place] [address] [facility], [facility] [place] [address] Historical LMR Provider 05/20/17 08/10/21 Ana Torres MD [address] [place] [address] Historical LMR Provider 05/20/17 Beni Mcneil MD 3500 [facility] [address] [place] [address] Historical LMR Provider 05/20/17 2 Freda Angela MD [address] [place] [address] [facility], [facility] [place] [address] Historical LMR Provider 05/20/17 Martha Reyes MD [address] [place] [address] Historical LMR Provider 05/20/17 Jose Angel Cobb MD [address] [place] [address], 2nd [place] [address] Insurance Assigned Provider 11/07/23 documented as of this encounter Additional Source Comments The information contained in this document represents components of the legal health record. It is not the complete legal health record.[facility]
--- OUTSIDE RECORDS SUMMARY | 2025-06-21 16:31 | XMS_ITS | Encounter Summary ---
Author Organization [facility] Address [address] [place] [address] [place] [address] Phone Care Team Providers Care Remelt Operator Name Role Phone Jose Angel Cobb MD Unavailable [phone] Travis Fowler DO Unavailable Ana Torres MD Unavailable Beni Mcneil MD Unavailable [phone] Freda Angela MD Unavailable Martha Reyes MD Unavailable Jose Angel Cobb MD Primary Care Provider [phone] Jose Angel Cobb MD Unavailable Encounter Details Date Type Department Care Team (Latest Contact Info) Description 08/10/2019 Transcribe Orders Virtual Department 30 [place] [address] Jesus Manuel Newman MD [address] [place] [address] [email or web address] Abnormal liver function test (Primary Dx) Social History Tobacco Use Types Packs/Day Years Used Date Smoking Tobacco: Never Smokeless Tobacco: Never Sex and Gender Information Value Date Recorded Sex Assigned at Male 04/15/2022 1:02 PM EDT Legal Sex Male 9:55 PM EDT Gender Identity Male 04/15/2022 1:02 PM EDT Sexual Orientation Not on file 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, 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 on file Not on sarah e documented as of this encounter Plan of Treatment Upcoming Encounters Date Type Department Care Team (Late st Contact Info) Description 06/27/2025 10:00 AM EST Office Visit [facility] Neuromuscular 60 [place] [address] Felicity Palomo PA-C 60 [place] [address] [email or web address] 07/12/2025 4:00 PM EST Office Visit [facility] [address] [place] [address] [place] [address] Jose Angel Cobb MD [address] [place] [address], 2nd [place] [address] documented as of this encounter Results * US ABDOMEN LIMITED RIGHT UPPER QUADRANT (08/19/2019 8:42 AM EST) Anatomical Region Laterality Modality Abdomen Ultrasound 08/19/2019 12:5 7 PM EST Impressions 08/19/2019 1:01 PM EST 1. Heterogeneous and hyperechoic liver. Slight irregularity of the liver surface. Findings represent fibrofatty infiltration. 2. No liver mass. 3. No gallstones. POS - [id number] Narrative 08/19/2019 1:01 PM EST EXAM: US [...] liver mass. 3. No gallstones. POS - [id number] Jesus Manuel Newman MD [facility] US ABDOMEN Final Result documented in this encounter Visit Diagnoses Diagnosis Abnormal liver function test- Primary Nonspecific abnormal results of liver function study Abnormal liver function test Nonspecific abnormal results of liver function study documented in this encounter Additional Health Concerns Assessment Noted Time PHQ-2 Depression Total Score: 0 07/06/20 19 4:34 PM EST documented as of this encounter Care Teams Remelt Operator Relationship Specialty Start Date End Date Jose Angel Cobb MD [address] [place] [address], 2nd [place] [address] PCP - General Internal Medicine 06/19/17 Jose Angel Cobb MD [address] [place] [address] Historical LMR Provider 05/20/17 Travis Fowler DO [address] [place] [address] [facility] [place] [address] Historical LMR Provider 05/20/17 08/10/21 Ana Torres MD [address] [place] [address] Historical LMR Provider 05/20/17 Beni Mcneil MD [address] [address] Historical LMR Provider 05/20/17 2 Freda Angela MD [address] [place] [address] Orthopedics & Sports [facility], [place] [address] Historical LMR Provider 05/20/17 Martha Reyes MD [address] [place] [address] Historical LMR Provider 05/20/17 Jose Angel Cobb MD [address] [place] [address] Insurance Assigned Provider 11/07/23 documented as of this encounter Additional Source Comments The information contained in this document represents components of the legal health record. It is not the complete legal health record.[facility]
--- OUTSIDE RECORDS SUMMARY | 2025-06-21 16:31 | XMS_ITS | Clinical Summary ---
Author Organization [facility] Address [address] [place] [address] Phone Care Team Providers Care Piano Mechanic Name Role Phone Jose Angel Cobb MD Unavailable Jose Angel Cobb MD Primary Care Provider Jose Angel Cobb MD Unavailable [phone] Allergies No known active allergies Medications [email or web address] [...] Advised that this should improve with time. 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 Neuromuscular 60 [place] [address] Felicity Palomo PA-C 60 [place] [address] [email or web address] 07/12/2025 4:00 PM EST Office Visit [facility] [address] [place] [address] [place] [address] Jose Angel Cobb MD 170 [facility], 2nd [place] [address] Health Maintenance Due Date Last Done Comments COLOGUARD 2000 FIT TEST 2000 FOBT 2000 SIGMOIDOSCOPY 2000 VIRTUAL COLONOSCOPY 2000 ZOSTER VACCINES (1 of 2) 2005 INFLUENZA VACCINE (#1) 2025 , 07/13/2023, 07/13/2023, Additional history exists COVID-19 VACCINE (2024- season) 2025 12/16/2021, 05/14/2021, 10/25/2020, Additional history exists DEPRESSION SCREENING 06/16/2026 06/16/2025, 07/13/20 COLONOSCOPY 09/02/2028 09/02/2018 COLORECTAL CANCER SCREENING 09/02/2028 [...] Procedure Name Priority Date/Time Associated Diagnosis Comments LIPID PANEL Routine 07/22/2024 8:12 AM EST Medicare annual wellness visit, subsequent LIVER FIBROSIS TEST Routine 10/04/2019 1 0:05 AM EST Hereditary hemochromatosis Fibrosis in abdominal region COLONOSCOPY FOR RESULT ENTRY ONLY Routine 09/02/2018 from Last 3 Months or Most Recently Relevant to Health Maintenance Results * Lipid panel (07/22/2024 8:12 AM EST) HDL 45 mg/dL [facility] Comment: Interpretation <40 mg/dL: Low HDL cholesterol (major risk factor for CHD) Greater than or equal to 60 mg/dL: High HDL cholesterol ( negative risk factor for CHD) HDL - cholesterol is affected by a number of factors, e.g. smoking, excerise, hormones, sex and age. CHOLESTEROL 166 0 - 240 mg/dL [facility] TRIGLYCERIDES 73 30 - 160 mg/dL [facility] LDL 106 50 - 129 mg/dL [facility] Comment: LDL levels in terms of risk for coronary heart disease: <100 mg/dL: Optimal 100-129 mg/dL: Near or above optimal 130-159 mg/dL: Borderline high 160-189 mg/dL: High >190 mg/dL: Very High CARDIAC RISK RATIO 3.7 3.4 - 5.0 [facility] Blood 07/22/2024 8:12 AM EST 07/22/2024 8:29 AM EST us Jose Angel Cobb MD LAB BLOOD BKR ORDERABLES Fi nal Result Performing Organization Address City/State/[facility] Co de Phone Number [address] [address] * (ABNORMAL) Liver fibrosis test (10/04/2019 10:05 AM EST) Fibrosis score 0.47 [facility] Interpretation (Fibrosis) SEE NOTE [facility] Comment: (NOTE) minimal fibrosis Fibro Test [...] (severe fibrosis) HCV Fibrosis Grade SEE NOTE [facility] Comment: (NOTE) Result: F1-F2 NECROINFLAMM SCORE 0.15 [facility] NECROINFLAMM GRADE A0 [facility] NECROINFLAMM INTERP SEE NOTE [facility] Comment: (NOTE) no activity ActiTest Score [...] A2 Macroglobulin 314(H) 106 - 279 mg/dL [facility] Haptoglobin 110 43 - 212 mg/dL [facility] Apolipoprotein A1 131 94 - 176 mg/dL [facility] TOTAL BILIRUBIN 0.5 0.2 - 1.2 mg/dL [facility] GGT 12 3 - 70 U/L [facility] ALT 26 9 - 46 U/L [facility] Specimen/Product ID [id number] [facility] Comments (Chemistry) SEE NOTE [facility] Comment: (NOTE) The reliability of results is dependent on compliance with the preanalytical and analytical conditions recommended by [employer]. The tests have to be deferred for: [...] The performance characteristics have been determined by [facility]. It has not been cleared or approved by the U.S. Food and Drug Administration. Performance characteristics refer to the analytical performance of the test. [employer], [employer], the associated logo, Yolto [place] and all associated [employer] antoine are the registered trademarks of [employer]. All third democrat antoine - (R) and (TM) - are the property of their respective owners. (C) 6477-3582 [employer]. All rights reserved. Test performed at [employer] [facility] [address] [place] [address] Director: TOÑITO MOLINA MD,PHD,VAL Blood 10/04/2019 10:0 5 AM EST 10/04/2019 10:10 AM EST Jesus Manuel Newman MD LAB BLOOD BKR ORDERABLES Final Result [facility] [address] [place] [address] * COLONOSCOPY FOR RESULT ENTRY ONLY (09/02/2018) Historical Provider HEALTH MAINTENANCE Final Result from Last 3 Months or Most Recently Relevant to Health Maintenance Insurance MEDICARE PART A & B [employer] MEDEX SUPPLEMENT MEDICARE PART A & B MEDEX SUPPLEMENT MEDICARE PART A & B [place] [place] MEDEX SUPPLEMENT MEDICARE PART A & B [employer] [place] MEDEX SUPPLEMENT MEDICARE PART A & B [employer] MEDEX SUPPLEMENT MEDICARE PART A & B [employer] MEDEX SUPPLEMENT Care Teams Piano Mechanic Relationship Specialty Start Date End Date Jose Angel Cobb MD [address] [place] [address], 2nd [place] [address] PCP - General Internal Medicine 06/19/17 Jose Angel Cobb MD [address] [place] [address], 2nd [place] [address] [email or web address] Historical LMR Provider 05/20/17 Jose Angel Cobb MD [address] [place] [address], [address] [place] [address] [email or web address] Insurance Assigned Provider 11/07/23 Additional Source Comments The information contained in this document represents components of the legal health record. It is not the complete legal health record.[facility]
--- OUTSIDE RECORDS SUMMARY | 2025-06-21 16:31 | XMS_ITS | Encounter Summary ---
Author Organization [facility] Address [address] [facility] [address] [place] [address] Phone Care Team Providers Care Machinery Rigger Name Role Phone Jose Angel Cobb MD Unavailable [phone] Jose Angel Cobb MD Primary Care Provider Jose Angel Cobb MD Unavailable [phone] Reason for Visit * Reason Onset Date Comments Dizziness 04/15/2022 Encounter Details Date Type Department Care Team (Late st Contact Info) Description 04/15/2022 Nurse Triage [facility] [address] [place] [address] [place] [address] Jose Angel Cobb MD [address] [place] [address], 2nd [place] [address] [email or web address] Dizziness Social History Tobacco Use Types Packs/Day [...] high school, GED, job training, learning the [place] language, technical skills, or developing parenting skills)? 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. Leave NOW. SOURCES OF CARE: * TRIAGER [...] your last menstrual period? no Protocols used: [id number] * Carmen Owens - 04/15/2022 8:46 AM EDT Pt called requesting to see PCP - has been having Vertigo for 3 days. Please call to advise. documented in this encounter Plan of Treatment Upcoming Encounters Date Type Department Care Team (Late st Contact Info) Description 06/27/2025 10:00 AM EST Office Visit [facility] Neuromuscular 60 [place] [address] Felicity Palomo PA-C 60 [place] [address] [email or web address] 07/12/2025 4:00 PM EST Office Visit [facility] [address] [place] [address] [place] [address] Jose Angel Cobb MD [address] [place] [address], 2nd [place] [address] [email or web address] documented as of this encounter Visit Diagnoses Not on filedocumented in this encounter Additional Health Concerns Assessment Noted Time PHQ-2 Depression Total Score: 0 12/26/19 22 2:52 PM EDT documented as of this encounter Care Teams Machinery Rigger Relationship Specialty Start Date End Date Jose Angel Cobb MD [address] [place] [address], [address] [place] [address] [email or web address] PCP - General Internal Medicine 06/19/17 Jose Angel Cobb MD [address] [place] [address], [address] [place] [address] [email or web address] Historical LMR Provider 05/20/17 Jose Angel Cobb MD [address] [place] [address], [address] [place] [address] [email or web address] Insurance Assigned Provider 11/07/23 documented as of this encounter Additional Source Comments The information contained in this document represents components of the legal health record. It is not the complete legal health record[facility]
--- OUTSIDE RECORDS SUMMARY | 2025-06-21 16:31 | XMS_ITS | Encounter Summary ---
Author Organization [facility] Address [address] [place] [address] [place] [address] Phone Care Team Providers Care Distilling Department Supervisor Name Role Phone Jose Angel Cobb MD Unavailable Travis Fowler DO Unavailable Ana Torres MD Unavailable [phone] Beni Mcneil MD Unavailable [phone] Freda Angela MD Unavailable Martha Reyes MD Unavailable Jose Angel Cobb MD Primary Care Provider Jose Angel oCbb MD Unavailable Encounter Details Date Type Department Care Team (Latest Contact Info) Description 08/17/2018 Transcribe Orders [facility] Phleb Connie [address] [facility] 2nd [place] [address] Jesus Manuel Newmna MD [address] [address] Hemochromatosis, unspecified hemochromatosis type (Primary Dx) Social [...] 06/27/2025 10:00 AM EST Office Visit [facility] Neuromuscular [address] [place] [address] Felicity Palomo PA-C 60 [place] [address] [email or web address] 07/12/2025 4:00 PM EST Office Visit [address] [place] [address] Jose Angel Cobb MD [address] [place] [address], 2nd [place] [address] [email or web address] documented as of this encounter Results * Ferritin (08/17/2018 11:23 AM EST) FERRITIN 58 30 - 400 ug/L [facility] Blood 08/17/2018 11:2 3 AM EST 08/17/2018 11:26 AM EST us Jesus Manuel Newman MD LAB BLOOD BKR ORDERABLES Final Result [facility] 30 [place] [address] * (ABNORMAL) Comprehensive metabolic panel (08/17/2018 11:23 AM EST) SODIUM 140 133 - 146 mmol/L [facility] POTASSIUM 4.8 3.3 - 5.1 mmol/L [facility] CHLORIDE 99 96 - 108 mmol/L [facility] CO2 29 21 - 35 mmol/L [facility] BUN 21(H) 6 - 19 mg/dL [facility] CREATININE 1.10 0.5 - 1.5 mg/dL [facility] GLUCOSE 97 70 - 99 mg/dL [facility] ALBUMIN 4.8 3.9 - 4.8 g/dL [facility] TOTAL PROTEIN 7.5 6.5 - 8.0 g/dL [facility] CALCIUM 9.9 8.4 - 10.3 mg/dL [facility] ALKALINE PHOSPHATASE 86 39 - 117 U/L [facility] TOTAL BILIRUBIN 0.7 0.0 - 1.2 mg/dL [facility] AST 34 0 - 37 U/L [facility] ALT 36 0 - 40 U/L [facility] GLOBULIN 2.7 1 - 4.8 g/dL [facility] EGFR 71 >59 mL/min/1.7 3m2 [facility] Comment:If patient is black, multiply result by 1.159. Estimated glomerular filtration rate calculated using the CKD-EPI equation. ANION GAP 17 10 - 20 mmol/L [facility] Blood 08/17/2018 11:2 3 AM EST 08/17/2018 11:26 AM EST us Jesus Manuel Newman MD LAB BLOOD BKR ORDERABLES Final Result [address] [address] * AFP (non-maternal specimens) (08/17/2018 11:23 AM EST) AFP (NON-MATERNAL) 1.6 0.8 - 7.5 ng/mL [facility] Blood 08/17/2018 11:2 3 AM EST 08/17/2018 11:26 AM EST us Jesus Manuel Newman MD LAB BLOOD BKR ORDERABLES Final Result [address] [address] documented in this encounter Visit Diagnoses Diagnosis Hemochromatosis, unspecified hemochromatosis type- Primary documented in this encounter Care Teams Distilling Department Supervisor Relationship Specialty Start Date End Date Jose Angel Cobb MD [address] [place] [address], 2nd [place] [address] PCP - General Internal Medicine 06/19/17 Jose Angel Cobb MD [address] [place] [address] Historical LMR Provider 05/20/17 Travis Fowler DO [address] [place] [address] Orthopedics & Sports [facility], [place] [address] Historical LMR Provider 05/20/17 08/10/21 Ana Torres MD [address] [place] [address] Historical LMR Provider 05/20/17 [place] [address] [place] [address] Historical LMR Provider 05/20/17 2 Freda Angela MD [address] [place] [address] Orthopedics Sports [facility], [place] [address] Historical LMR Provider 05/20/17 Martha Reyes MD [address] [place] [address] Historical LMR Provider 05/20/17 Jose Angel Cobb MD [address] [place] [address] Insurance Assigned Provider 11/07/23 documented as of this encounter Additional Source Comments The information contained in this document represents components of the legal health record. It is not the complete legal health record.[facility]
--- OUTSIDE RECORDS SUMMARY | 2025-06-21 16:31 | XMS_ITS | Encounter Summary ---
Author Organization [facility] Address [address] [place] [address] [place] [address] Phone Care Team Providers Care General Farmworker Name Role Phone Jose Angel Cobb MD Unavailable Travis oFwler DO Unavailable Ana Torres MD Unavailable Beni Mcneil MD Unavailable Freda Angela MD Unavailable Martha Reyes MD Unavailable Jose Angel Cobb MD Primary Care Provider Jose Angel Cobb MD Unavailable Encounter Details Date Type Department Care Team (Latest Contact Info) Description 10/04/2019 Transcribe Orders [facility] Phleb Connie [address] 2nd [place] [address] Jesus Manuel Newman MD [address] [address] Hereditary hemochromatosis (Primary Dx); Fibrosis in abdominal [...] Job Start Date Job End Date engineering manager electronics, 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 on file Not on sarah e documented as of this encounter Plan of Treatment Upcoming Encounters Date Type Department Care Team (Late st Contact Info) Description 06/27/2025 10:00 AM EST Office Visit [facility] Neuromuscular 60 [place] [address] Felictiy Palomo PA-C 60 [place] [address] [email or web address] 07/12/2025 4:00 PM EST Office Visit [facility] [address] [place] [address] [place] [address] Jose Angel Cobb MD [address] [place] [address], 2nd [place] [address] [email or web address] documented as of this encounter Results * LFTs (hepatic panel) (10/04/2019 10:05 AM EST) ALKALINE PHOSPHATASE 78 39 - 117 U/L [facility] TOTAL BILIRUBIN 0.4 0.0 - 1.2 mg/dL [facility] DIRECT BILIRUBIN <0.2 0 - 0.3 mg/dL [facility] Bilirubin (Indirect) NOT CALCULATED 0 - 1.5 mg/dL [facility] AST 31 0 - 37 U/L [facility] ALT 30 0 - 40 U/L [facility] TOTAL PROTEIN 7.3 6.5 - 8.0 g/dL [facility] ALBUMIN 4.6 3.9 - 4.8 g/dL [facility] GLOBULIN 2.7 1 - 4.8 g/dL [facility] A/G Ratio 1.70 1.00 - 4.80 RATIO [facility] Blood 10/04/2019 10:0 5 AM EST 10/04/2019 10:10 AM EST us Jesus Manuel Newman MD LAB BLOOD BKR ORDERABLES Final Result [facility] 30 [place] [address] * (ABNORMAL) Liver fibrosis test (10/04/2019 10:05 AM EST) Fibrosis score 0.47 [facility] Interpretation (Fibrosis) SEE NOTE [facility] Comment: (NOTE) minimal fibrosis Fibro Test [...] (severe fibrosis) HCV Fibrosis Grade SEE NOTE [facility] Comment: (NOTE) Result: F1-F2 NECROINFLAMM SCORE 0.15 [facility] NECROINFLAMM GRADE A0 [facility] NECROINFLAMM INTERP SEE NOTE [facility] Comment: (NOTE) no activity ActiTest Score [...] A2 Macroglobulin 314(H) 106 - 279 mg/dL [facility] Haptoglobin 110 43 - 212 mg/dL [facility] Apolipoprotein A1 131 94 - 176 mg/dL [facility] TOTAL BILIRUBIN 0.5 0.2 - 1.2 mg/dL [facility] GGT 12 3 - 70 U/L [facility] ALT 26 9 - 46 U/L [facility] Specimen/Product ID [id number] [facility] Comments (Chemistry) SEE NOTE [facility] Comment: (NOTE) The reliability of results is dependent on compliance with the preanalytical and analytical conditions recommended by [employer]. The tests have to be deferred for: [...] The performance characteristics have been determined by [facility]. It has not been cleared or approved by the U.S. Food and Drug Administration. Performance characteristics refer to the analytical performance of the test. [employer], the associated logo, [employer] and all associated [employer] antoine are the registered trademarks of [employer]. All third constitution party antoine - (R) and (TM) - are the property of their respective owners. (C) 8039-1486 [employer]. All rights reserved. Test performed at [facility] [facility] [address] [place] [address] Director: TOÑITO MOLINA MD,PHD,VAL Blood 10/04/2019 10:0 5 AM EST 10/04/2019 10:10 AM EST us Jesus Manuel Newman MD LAB BLOOD BKR ORDERABLES Final Result [facility] 30 [place] [address] * AFP (non-maternal specimens) (10/04/2019 10:05 AM EST) AFP (NON-MATERNAL) <1.8 <7.9 ng/mL [facility] Blood 10/04/2019 10:0 5 AM EST 10/04/2019 10:10 AM EST us Jesus Manuel Newman MD LAB BLOOD BKR ORDERABLES Final Result [facility] 30 [place] [address] documented in this encounter Visit Diagnoses Diagnosis Hereditary hemochromatosis- Primary Fibrosis in abdominal region documented in this encounter Additional Health Concerns Assessment Noted Time PHQ-2 Depression Total Score: 0 07/06/20 19 4:34 PM EST documented as of this encounter Care Teams General Farmworker Relationship Specialty Start Date End Date Jose Angel Cobb MD [address] [place] [address] PCP - General Internal Medicine 06/19/17 Jose Angel Cobb MD [address] [place] [address] Historical LMR Provider 05/20/17 Travis Fowler DO [address] [place] [address] Orthopedics & Sports Medicine, [place] [address] Historical LMR Provider 05/20/17 08/10/21 Ana Torres MD [address] [place] [address] Historical LMR Provider 05/20/17 Beni Mcneil MD [address] [facility] [address] [place] [address] Historical LMR Provider 05/20/17 2 Freda Angela MD [address] [place] [address] Orthopedics & Sports Medicine, [facility] [place] [address] Historical LMR Provider 05/20/17 Martha Reyes MD [address] [place] [address] Historical LMR Provider 05/20/17 Jose Angel Cobb MD [address] [place] [address], 2nd [place] [address] [email or web address] Insurance Assigned Provider 11/07/23 documented as of this encounter Additional Source Comments The information contained in this document represents components of the legal health record. It is not the complete legal health record.[facility]
--- OUTSIDE RECORDS SUMMARY | 2025-06-21 16:31 | XMS_ITS | Encounter Summary ---
Author Organization [facility] Address [address] [place] [address] Phone Care Team Providers Care Community Dietitian Name Role Phone Jose Angel Cobb MD Unavailable [phone] Jose Angel Cobb MD Primary Care Provider Jose Angel Cobb MD Unavailable [phone] Encounter Details Date Type Department Care Team (Latest Contact Info) Description 10/15/2023 Transcribe Orders Virtual Department 30 [place] [address] Jesus Manuel Newman MD [address] [place] [address] [email or web address] Hepatic fibrosis (Primary Dx); Hereditary hemochromatosis Social [...] high school, GED, job training, learning the [place] language, technical skills, or developing parenting skills)? 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 Neuromuscular 60 [place] [address] Felicity Palomo PA-C 60 [place] [address] [email or web address] 07/12/2025 4:00 PM EST Office Visit [facility] [address] [place] [address] [place] [address] Jose Angel Cobb MD [address] [place] [address], 2nd [place] [address] [email or web address] documented as of this encounter Results * [...] in the right hepatic lobe on a [employer] ultrasound machine. 10 valid measurements were obtained. Median shear wave speed is: 1.21 m/s. IQR to median ratio: 5.6%. Gallbladder: No gallstones or gallbladder wall thickening. Vogel's Sign: Negative. Biliary: No intrahepatic biliary ductal dilatation. The common bile duct measures 3 mm. Procedure Note Lucio Tejada MD - 10/29/2023 US LIVER WITH ELASTOGRAPHY Referring clinician's provided indication for this examination in [facility]:Outside Radiology Order; HEPATIC FIBROSIS TECHNIQUE: Focused ultrasound evaluation of the liver. Volumetric sweeps wereobtained and reviewed. COMPARISON: US LIVER WITH ELASTOGRAPHY FINDINGS: LIVER: Hyperechogenic parenchyma with focal sparing around thegallbladder. No suspicious focal lesion. ELASTOGRAPHY: Liver stiffness measurements were obtained in the righthepatic lobe on a [employer] ultrasound machine. 10 valid measurements wereobtained. Median [...] the cut-off values are not well established. Jesus Manuel Newman MD IM US ABDOMEN [...] documented as of this encounter Care Teams Community Dietitian Relationship Specialty Start Date End Date Jose Angel Cobb MD [address] [place] [address] PCP - General Internal Medicine 06/19/17 Jose Angel Cobb MD [address] [place] [address] [place] [address] Historical LMR Provider 05/20/17 Jose Angel Cobb MD [address] [facility], 2nd [place] [address] Insurance Assigned Provider 11/07/23 documented as of this encounter Additional Source Comments The information contained in this document represents components of the legal health record. It is not the complete legal health record.[facility]
--- OUTSIDE RECORDS SUMMARY | 2025-06-21 16:31 | XMS_ITS | Encounter Summary ---
Author Organization [facility] Address [address] [facility] [address] [place] [address] Phone Care Team Providers Care Fire Medic Name Role Phone Jose Angel Cobb MD Unavailable [phone] Jose Angel Cobb MD Primary Care Provider [phone] Jose Angel Cobb MD Unavailable Reason for Visit * Reason Onset Date Comments Referral 06/14/2024 Encounter Details Date Type Department Care Team (Late st Contact Info) Description 06/14/2024 Telephone [facility] [address] [place] [address] [place] [address] Jose Angel Cobb MD [address] [place] [address], 2[address] [place] [address] [email or web address] Referral Social History Tobacco Use Types Packs/Day [...] 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 Patient has no preference of autographer to go too, just wants referral. Please [phone] documented in this encounter Plan of Treatment Upcoming Encounters Date Type Department Care Team (Late st Contact Info) Description 06/27/2025 10:00 AM EST Office Visit [facility] Neuromuscular 60 [place] [address] Felicity Palomo PA-C 60 [place] [address] [email or web address] 07/12/2025 4:00 PM EST Office Visit [facility] [address] [place] [address] [place] [address] Jose Angel Cobb MD [address] [place] [address] documented as of this encounter Visit Diagnoses Not on filedocumented in this encounter Additional Health Concerns Assessment Noted Time PHQ-9 Depression Total Score: 4 07/13/20 23 8:19 AM EST PHQ-2 Depression Total Score: 0 07/13/20 23 8:19 AM EST documented as of this encounter Care Teams Fire Medic Relationship Specialty Start Date End Date Jose Angel Cobb MD [address] [place] [address] PCP - General Internal Medicine 06/19/17 Jose Angel Cobb MD [address] [place] [address] Historical LMR Provider 05/20/17 Jose Angel Cobb MD [address] [place] [address] Insurance Assigned Provider 11/07/23 documented as of this encounter Additional Source Comments The information contained in this document represents components of the legal health record. It is not the complete legal health record.[facility]
--- OUTSIDE RECORDS SUMMARY | 2025-06-21 16:31 | XMS_ITS | Encounter Summary ---
Author Organization [facility] Address [address] [place] [address] Phone Care Team Providers Care Roll Repairer Name Role Phone Jose Angel Cobb MD Unavailable [phone] Jose Angel Cobb MD Primary Care Provider Jose Angel Cobb MD Unavailable [phone] Encounter Details Date Type Department Care Team (Latest Contact Info) Description 03/29/2024 Transcribe Orders Virtual Department 30 [place] [address] Jesus Manuel Newman MD [address] [place] [address] [email or web address] Hepatic fibrosis (Primary Dx); Hereditary hemochromatosis Social [...] Industry Job Start Date Job End Date senior reliability engineer, 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 on file Not on sarah e documented as of this encounter Plan of Treatment Upcoming Encounters Date Type Department Care Team (Late st Contact Info) Description 06/27/2025 10:00 AM EST Office Visit [facility] Neuromuscular 60 [place] [address] Felicity Palomo PA-C 60 [place] [address] [email or web address] 07/12/2025 4:00 PM EST Office Visit [facility] [address] [place] [address] [place] [address] Jose Angel Cobb MD [address] [place] [address] documented as of this encounter Visit Diagnoses Diagnosis Hepatic fibrosis- Primary Cirrhosis of liver without mention of alcohol Hereditary hemochromatosis documented in this encounter Additional Health Concerns Assessment Noted Time PHQ-9 Depression Total Score: 4 07/13/20 23 8:19 AM EST PHQ-2 Depression Total Score: 0 07/13/20 23 8:19 AM EST documented as of this encounter Care Teams Roll Repairer Relationship Specialty Start Date End Date Jose Angel Cobb MD [address] [place] [address] PCP - General Internal Medicine 06/19/17 Jose Angel Cobb MD [address] [place] [address] Historical LMR Provider 05/20/17 Jose Angel Cobb MD [address] [place] [address] Insurance Assigned Provider 11/07/23 documented as of this encounter Additional Source Comments The information contained in this document represents components of the legal health record. It is not the complete legal health record.[facility]
--- OUTSIDE RECORDS SUMMARY | 2025-06-21 16:31 | XMS_ITS | Encounter Summary ---
Author Organization [facility] Address [address] [place] [address] [place] [address] Phone Care Team Providers Care Power Transmission Engineer Name Role Phone Jose Angel Cobb MD Unavailable [phone] Travis Fowler DO Unavailable Ana Torres MD Unavailable Beni Mcneil MD Unavailable Freda Angela MD Unavailable Martha Reyes MD Unavailable Jose Angel Cobb MD Primary Care Provider Jose Angel Cobb MD Unavailable [phone] Encounter Details Date Type Department Care Team (Latest Contact Info) Description 04/26/2021 Transcribe Orders Virtual Department 30 [place] [address] Jesus Manuel Newman MD [address] [place] [address] [email or web address] Hepatic fibrosis (Primary Dx) Social History Tobacco Use Types Packs/Day Years Used Date Smoking Tobacco: Never Smokeless Tobacco: Never Sex and Gender Information Value Date Recorded Sex Assigned at Male 04/15/2022 1:02 PM EDT Legal Sex Male 9:55 PM EDT Gender Identity Male 04/15/2022 1:02 PM EDT Sexual Orientation Not on file 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, 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 on file Not on sarah e documented as of this encounter Plan of Treatment Upcoming Encounters Date Type Department Care Team (Late st Contact Info) Description 06/27/2025 10:00 AM EST Office Visit [facility] Neuromuscular 60 [place] [address] Felicity Palomo PA-C 60 [place] [address] [email or web address] 07/12/2025 4:00 PM EST Office Visit [facility] [address] [place] [address] [place] [address] Jose Angel Cobb MD [address] [place] [address], 2nd [place] [address] documented as of this encounter Results * [...] Time PHQ-2 Depression Total Score: 0 07/06/20 4:34 PM EST documented as of this encounter Care Teams Power Transmission Engineer Relationship Specialty Start Date End Date Jose Angel Cobb MD [address] [place] [address] PCP - General Internal Medicine 06/19/17 Jose Angel Cobb MD [address] [place] [address] Historical LMR Provider 05/20/17 Travis Fowler DO [address] [place] [address] Orthopedics & Sports Medicine, [facility] [place] [address] Historical LMR Provider 05/20/17 08/10/21 Ana Torres MD [address] [address] Historical LMR Provider 05/20/17 Beni Mcneil MD [facility] [address] [place] [address] Historical LMR Provider 05/20/17 2 Freda Angela MD [address] [place] [address] Orthopedics & Sports Medicine, [place] [address] [email or web address] Historical LMR Provider 05/20/17 Martha Reyes MD [address] [place] [address] Historical LMR Provider 05/20/17 Jose Angel Cobb MD [address] [place] [address], 2nd [place] [address] [email or web address] Insurance Assigned Provider 11/07/23 documented as of this encounter Additional Source Comments The information contained in this document represents components of the legal health record. It is not the complete legal health record.[facility]
--- OUTSIDE RECORDS SUMMARY | 2025-06-21 16:31 | XMS_ITS | Encounter Summary ---
Author Organization [facility] Address [address] [place] [address] Phone Care Team Providers Care Health Care Specialist Name Role Phone Jose Angel Cobb MD Unavailable [phone] Jose Angel Cobb MD Primary Care Provider [phone] Jose Angel Cobb MD Unavailable [phone] Encounter Details Date Type Department Care Team (Latest Contact Info) Description 11/26/2022 Transcribe Orders Virtual Department [address] [place] [address] Jesus Manuel Newman MD [address] [place] [address] [email or web address] Hepatic fibrosis (Primary Dx); Hereditary hemochromatosis Social [...] high school, GED, job training, learning the Bel[place]ian language, technical skills, or developing parenting skills)? 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 on file Not on sarah e documented as of this encounter Plan of Treatment Upcoming Encounters Date Type Department Care Team (Late st Contact Info) Description 06/27/2025 10:00 AM EST Office Visit [address] [address] Felicity Palomo PA-C [address] [place] [address] [email or web address] 07/12/2025 4:00 PM EST Office Visit [facility] [address] [place] [address] [place] [address] Jose Angel Cobb MD [address] [facility], 2nd Floor [place], [place] documented as of this encounter Results * [...] in Ultrasound Liver Elastography Consensus Statement. Radiology. 2019;296(2):263-274. doi: [id number]/[id number]. Epub 2019Jan 09. PMID: [id number]. Procedure Note Elaine Skinner MD - 12/19/2022 [...] Ultrasound Liver Elastography ConsensusStatement. Radiology. 2020 Mar;296(2):263-274. doi:[id number]. Epub 2019Jan 09. PMID: [id number]. IMPRESSION: 1. Mean Liver Stiffness Value 6.6 [...] Noted Time PHQ-2 Depression Total Score: 0 05/25/20 22 2:52 PM EDT documented as of this encounter Care Teams Health Care Specialist Relationship Specialty Start Date End Date Jose Angel Cobb MD [address] [place] [phone] PCP - General Internal Medicine 06/19/17 Jose Angel Cobb MD [address] [place] [address] Historical LMR Provider 05/20/17 Jose Angel Cobb MD [address] [place] [id number] Insurance Assigned Provider 11/07/23 documented as of this encounter Additional Source Comments The information contained in this document represents components of the legal health record. It is not the complete legal health record.[facility]
--- OUTSIDE RECORDS SUMMARY | 2025-06-21 16:31 | XMS_ITS | Encounter Summary ---
Author Organization [facility] Address [address] [place] [address] Phone Care Team Providers Care Sound Printer Name Role Phone Jose Angel Cobb MD Unavailable [phone] Jose Angel Cobb MD Primary Care Provider [phone] Jose Angel Cobb MD Unavailable [phone] Encounter Details Date Type Department Care Team (Late st Contact Info) Description 04/15/2022 Procedure Pass [facility], Ct Scan - [address] [address] Social History Tobacco Use Types Packs/Day Years [...] high school, GED, job training, learning the Italian language, technical skills, or developing parenting skills)? 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 on file Not on sarah e documented as of this encounter Functional Status * Calculated C-SSRS Risk Score (Lifetime/Recent) Answer Date of Assessment Author No Risk Indicated 04/15/2022 1:01 PM EDT Amanda Tinajero RN * [place] Suicide Severity Rating Scale (Screener/Recent Self-Report) Question [...] Description 06/27/2025 10:00 AM EST Office Visit [facility] Neuromuscular [address] [place] [address] Felicity Palomo PA-C 60 [place] [address] [email or web address] 07/12/2025 4:00 PM EST Office Visit [facility] [address] [place] [address] [place] [address] Jose Angel Cobb MD [address] [place] [address] documented as of this encounter Visit Diagnoses Not on filedocumented in this encounter Additional Health Concerns Assessment Noted Time PHQ-2 Depression Total Score: 0 12/26/19 22 2:52 PM EDT documented as of this encounter Care Teams Sound Printer Relationship Specialty Start Date End Date Jose Angel Cobb MD [address] [place] [address] PCP - General Internal Medicine 06/19/17 Jose Angel Cobb MD [address] [place] [address] Historical LMR Provider 05/20/17 Jose Angel Cobb MD [address] [place] [address] Insurance Assigned Provider 11/07/23 documented as of this encounter Additional Source Comments The information contained in this document represents components of the legal health record. It is not the complete legal health record.[facility]
--- OUTSIDE RECORDS SUMMARY | 2025-06-21 16:32 | XMS_ITS | Encounter Summary ---
Author Organization [facility] Address [address] [place] [address] Phone Care Team Providers Care Manager Commission Name Role Phone Jose Angel Cobb MD Unavailable [phone] Jose Angel Cobb MD Primary Care Provider [phone] Jose Angel Cobb MD Unavailable [phone] Encounter Details Date Type Department Care Team (Late st Contact Info) Description 03/14/2024 Procedure Pass [facility], [address] [place] [address] Social History Tobacco Use Types Packs/Day Years [...] Industry 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, 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 on file Not on sarah e documented as of this encounter Plan of Treatment Upcoming Encounters Date Type Department Care Team (Late st Contact Info) Description 06/27/2025 10:00 AM EST Office Visit [facility] Neuromuscular [address] [place] [address] Felicity Palomo PA-C 60 [place] [address] [email or web address] 07/12/2025 4:00 PM EST Office Visit [facility] [address] [place] [address] Dr [place] [phone] Jose Angel Cobb MD [address] [place] [address], [address]nd Floor [place] documented as of this encounter Visit Diagnoses Not on filedocumented in this encounter Additional Health Concerns Assessment Noted Time PHQ-9 Depression Total Score: 4 07/13/20 23 8:19 AM EST PHQ-2 Depression Total Score: 0 07/13/20 23 8:19 AM EST documented as of this encounter Care Teams Manager Commission Relationship Specialty Start Date End Date Jose Angel Cobb MD [address] [place] [address], [address] [place] [phone] PCP - General Internal Medicine 06/19/17 Jose Angel Cobb MD [address] [place] [address] Historical LMR Provider 05/20/17 Jose Angel Cobb MD [address] [place] [address] Insurance Assigned Provider 11/07/23 documented as of this encounter Additional Source Comments The information contained in this document represents components of the legal health record. It is not the complete legal health record.[facility]
--- OUTSIDE RECORDS SUMMARY | 2025-06-21 16:32 | XMS_ITS | Encounter Summary ---
Author Organization [facility] Address [address] [place] [address] Phone Care Team Providers Care Machine Stone Polisher Name Role Phone Jose Angel Cobb MD Unavailable Jose Angel Cobb MD Primary Care Provider Jose Angel Cobb MD Unavailable [phone] Encounter Details Date Type Department Care Team (Latest Contact Info) Description 03/09/2024 Transcribe Orders [facility] [address] [place] [address] Jesus Manuel Newman MD [address] 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 on file Not on sarah e documented as of this encounter Plan of Treatment Upcoming Encounters Date Type Department Care Team (Late st Contact Info) Description 06/27/2025 10:00 AM EST Office Visit [facility] Neuromuscular [address] [place] [address] Felicity Palomo PA-C 60 [place] [address] [email or web address] 07/12/2025 4:00 PM EST Office Visit [facility] [address] [place] [address] [place] [address] Jose Angel Cobb MD [address] [place] [address], 2[address] [place] [address] [email or web address] documented as of this encounter Results * (ABNORMAL) Comprehensive metabolic panel (03/09/2024 8:18 AM EDT) SODIUM 139 133 - 146 mmol/L [facility] POTASSIUM 5.5(H) 3.3 - 5.1 mmol/L [facility] CHLORIDE 103 96 - 108 mmol/L [facility] CO2 27 21 - 35 mmol/L [facility] BUN 25(H) 6 - 19 mg/dL [facility] CREATININE 1.00 0.5 - 1.5 mg/dL [facility] GLUCOSE 96 70 - 99 mg/dL [facility] ALBUMIN 4.4 3.9 - 4.8 g/dL [facility] TOTAL PROTEIN 7.2 6.5 - 8.0 g/dL [facility] CALCIUM 9.5 8.4 - 10.3 mg/dL [facility] ALKALINE PHOSPHATASE 103 39 - 117 U/L [facility] TOTAL BILIRUBIN 0.6 0.0 - 1.2 mg/dL [facility] AST 42(H) 0 - 37 U/L [facility] ALT 29 0 - 40 U/L [facility] GLOBULIN 2.8 1 - 4.8 g/dL [facility] EGFR 82 >59 mL/min/1.7 3m2 [facility] Comment:Estimated glomerular filtration rate calculated using the CKD-EPI refit equation. ANION GAP 15 10 - 20 mmol/L [facility] Blood 03/09/2024 8:18 AM EDT 03/09/2024 8:22 AM EDT us Jesus Manuel Newman MD LAB BLOOD BKR ORDERABLES Final Result [facility] [address] [place] [address] * CBC (03/09/2024 8:18 AM EDT) WBC 5.79 4.00 - 11.00 K/uL [facility] RBC 4.81 3.90 - 5.69 M/uL [facility] HGB 15.5 12.4 - 17.3 g/dL [facility] HCT 44.7 37.0 - 51.0 % [facility] PLT 224 140 - 430 K/uL [facility] MCV 92.9 78.0 - 97.0 fL [facility] MCH 32.2 25.0 - 33.0 pg [facility] MCHC 34.7 32.0 - 36.0 g/dL [facility] RDW 13.2 11.0 - 15.0 % [facility] MPV 10.0 8.4 - 12.8 fl [facility] Blood 03/09/2024 8:18 AM EDT 03/09/2024 8:22 AM EDT us Jesus Manuel Newman MD LAB BLOOD BKR ORDERABLES Final Result Performing Organization Address City/[facility] Co de Phone Number [address] [address] * AFP (non-maternal specimens) (03/09/2024 8:18 AM EDT) AFP (NON-MATERNAL) <1.8 <7.9 ng/mL [facility] Comment: Test Methodology Feliz e801 Patient results determined by assays using different manufacturers or methods may not be comparable. Blood 03/09/2024 8:18 AM EDT 03/09/2024 8:22 AM EDT Jesus Manuel Newman MD LAB BLOOD BKR ORDERABLES Final Result Performing Organization Address City/[facility]/ZIP Co de Phone Number [address] [address] documented in this encounter Visit Diagnoses Diagnosis Hereditary hemochromatosis- Primary documented in this encounter Additional Health Concerns Assessment Noted Time PHQ-9 Depression Total Score: 4 07/13/20 23 8:19 AM EST PHQ-2 Depression Total Score: 0 07/13/20 8:19 AM EST documented as of this encounter Care Teams Machine Stone Polisher Relationship Specialty Start Date End Date Jose Angel Cobb MD [address] [place] [address], [address] [place] [address] [email or web address] PCP - General Internal Medicine 06/19/17 Jose Angel Cobb MD [address] [place] [address], [address] [place] [address] Historical LMR Provider 05/20/17 Jose Angel Cobb MD [address] [place] [address], [address] [place] [id number] [email or web address] Insurance Assigned Provider 11/07/23 documented as of this encounter Additional Source Comments The information contained in this document represents components of the legal health record. It is not the complete legal health record.[facility]
== END 2025-06-21 08:54 | disposition home or self-care (01) ==
LOC: HO.BBR 08:53
PROVIDERS: PCP Internal Medicine; Visit Provider Internal Medicine Gastroenterology
DX: E83.110 Hereditary hemochromatosis (principal)
CPT/HCPCS: 36415; 82728